=== PATIENT | female | born 1945 | race Caucasian/White ===

== ENCOUNTER → 2016-11-22 | Outpatient (CLI) | payer MEDICARE, OTHER ==
[~2016-11-22] MED LIST: LEVOTHYROXINE0.05 MG PO; LISINOPRIL10 MG PO; OMEPRAZOLE40 MG PO; SIMVASTATIN40 M1 PO
== END ==
LOC: MAMMO 11:02
DX: Z12.31 Encounter for screening mammogram for malignant neoplasm of breast (principal); Z00.00 Encounter for general adult medical examination without abnormal findings
CPT/HCPCS: G0202

== ENCOUNTER → 2016-12-19 | Day surgery (SDC) | payer MEDICARE, OTHER | LOC: MSO 07:26 | DX: Z12.11 Encounter for screening for malignant neoplasm of colon (principal); Z86.010 Personal history of colon polyps; Z80.0 Family history of malignant neoplasm of digestive organs; I10 Essential (primary) hypertension; K21.9 Gastro-esophageal reflux disease without esophagitis | CPT/HCPCS: 00810; J7120 ==

== ENCOUNTER → 2017-01-21 | Outpatient (CLI) | payer MEDICARE, OTHER | LOC: RAD 14:34 | DX: M25.572 Pain in left ankle and joints of left foot (principal); M25.571 Pain in right ankle and joints of right foot; M77.32 Calcaneal spur, left foot; W10.8XXA Fall (on) (from) other stairs and steps, initial encounter ==

== ENCOUNTER 2017-01-22 18:38 | Emergency (ER) | payer MEDICARE, OTHER ==
[~2017-01-22] VITALS: Ht 162.6 cm; Wt 80.8 kg
[2017-01-22] MEDS ORDERED: LISINOPRIL10 MG PO (18:48)
[2017-01-22] MEDS ORDERED: LEVOTHYROXINE0.05 MG PO (18:48)
[2017-01-22] MEDS ORDERED: OMEPRAZOLE40 MG PO (18:48)
[2017-01-22] MEDS ORDERED: SIMVASTATIN40 M1 PO (18:48)
[2017-01-22 20:43] VITALS: BP 143/81
== END 2017-01-22 20:43 | disposition home or self-care (01) ==
LOC: ED 18:38
DX: S93.402A Sprain of unspecified ligament of left ankle, initial encounter (principal); S93.401A Sprain of unspecified ligament of right ankle, initial encounter; W10.9XXA Fall (on) (from) unspecified stairs and steps, initial encounter; Y92.89 Other specified places as the place of occurrence of the external cause; I10 Essential (primary) hypertension

== ENCOUNTER → 2017-02-07 | Outpatient (CLI) | payer MEDICARE, OTHER ==
[2017-01-22 20:43] VITALS: BP 143/81
== END ==
LOC: RAD 13:15
DX: M25.572 Pain in left ankle and joints of left foot (principal); M25.571 Pain in right ankle and joints of right foot; M77.31 Calcaneal spur, right foot

== ENCOUNTER → 2017-04-05 | Outpatient (CLI) | payer MEDICARE, OTHER | LOC: RAD 09:10 | DX: M17.12 Unilateral primary osteoarthritis, left knee (principal) ==

== ENCOUNTER → 2017-05-02 | Outpatient (CLI) | payer MEDICARE, OTHER | LOC: LAB 10:32 | DX: Z00.00 Encounter for general adult medical examination without abnormal findings (principal); I10 Essential (primary) hypertension; E78.2 Mixed hyperlipidemia; E03.4 Atrophy of thyroid (acquired) ==

== ENCOUNTER → 2017-12-13 | Outpatient (CLI) | payer MEDICARE, OTHER | LOC: RAD 10:28 → MAMMO 11:30 | DX: Z13.820 Encounter for screening for osteoporosis (principal); M85.88 Other specified disorders of bone density and structure, other site ==

== ENCOUNTER 2018-02-24 20:52 | Emergency (ER) | payer MEDICARE, OTHER ==
[~2018-02-24] VITALS: Ht 162.6 cm; Wt 81.8 kg
[2018-02-24] MEDS ORDERED: ASPIR LOW81 MG PO (21:14)
[2018-02-24 21:54] LABS: ALBUMIN 3.7 g/dL (3.5-5.0); BUN/CREATININE RATIO 20.7 (6.0-26.0); CALCIUM 8.9 mg/dL (8.4-10.2); POTASSIUM 4.4 mmol/L (3.6-5.0); TOTAL BILIRUBIN 0.3 mg/dL (0.2-1.3); TOTAL PROTEIN 6.8 g/dL (6.3-8.2)
[2018-02-24 22:23] LABS: EOS # 0.1 (0.04-0.40); EOS % 1.4 % (1.0-5.0); HEMATOCRIT 38.3 % (37.0-47.0); HEMOGLOBIN 12.3 g/dL (12.5-16.0); LYMPH# 1.7 (1.50-4.00); MEAN CELL VOLUME 95 fl (78-100); MEAN CORPUSCULAR HEMOGLOBIN 31 pg (27-31); MEAN CORPUSCULAR HGB CONC 32 g/dL (33-37); MEAN PLATELET VOLUME 9.6 fl (7.4-10.4); MONO # 0.6 (0.20-0.80); NEU # 5.4 (1.40-6.50); PLATELET COUNT 205 K/mm3 (130-400); RED BLOOD COUNT 4.02 M/mm3 (4.10-5.30); RED CELL DISTRIBUTION WIDTH 12.8 % (11.5-14.5); WHITE BLOOD COUNT 7.8 K/mm3 (4.8-10.8)
[2018-02-24 23:17] VITALS: BP 159/68
== END 2018-02-24 23:17 | disposition home or self-care (01) ==
LOC: ED 20:52
PROVIDERS: Family Medicine
DX: R07.9 Chest pain, unspecified (principal); I10 Essential (primary) hypertension; E78.5 Hyperlipidemia, unspecified; K21.9 Gastro-esophageal reflux disease without esophagitis; Z79.82 Long term (current) use of aspirin

== ENCOUNTER → 2018-02-27 | Outpatient (CLI) | payer MEDICARE, OTHER ==
[2018-02-24 23:17] VITALS: BP 159/68
[~2018-02-27] MED LIST changes: +ASPIR LOW81 MG PO
== END ==
LOC: RAD 07:09
DX: R10.11 Right upper quadrant pain (principal)

== ENCOUNTER → 2018-04-02 | Day surgery (SDC) | payer MEDICARE, OTHER | LOC: MSO 04-01 16:02 | DX: R10.13 Epigastric pain (principal); R11.0 Nausea; I10 Essential (primary) hypertension; Z79.899 Other long term (current) drug therapy | CPT/HCPCS: 00731; J2704; J7120 ==

== ENCOUNTER → 2018-04-09 | Outpatient (CLI) | payer MEDICARE, OTHER ==
[2018-04-09 11:05] LABS: EOS # 0.3 (0.04-0.40); EOS % 5.2 % (1.0-5.0); HEMATOCRIT 39.3 % (37.0-47.0); HEMOGLOBIN 12.6 g/dL (12.5-16.0); LYMPH# 1.5 (1.50-4.00); MEAN CELL VOLUME 96 fl (78-100); MEAN CORPUSCULAR HEMOGLOBIN 31 pg (27-31); MEAN CORPUSCULAR HGB CONC 32 g/dL (33-37); MEAN PLATELET VOLUME 9.5 fl (7.4-10.4); MONO # 0.6 (0.20-0.80); NEU # 3.8 (1.40-6.50); PLATELET COUNT 236 K/mm3 (130-400); RED BLOOD COUNT 4.09 M/mm3 (4.10-5.30); WHITE BLOOD COUNT 6.3 K/mm3 (4.8-10.8)
[2018-04-09 11:20] LABS: CALCIUM 9.6 mg/dL (8.4-10.2); POTASSIUM 4.7 mmol/L (3.6-5.0); TOTAL BILIRUBIN 0.4 mg/dL (0.2-1.3); TOTAL PROTEIN 7.2 g/dL (6.3-8.2)
== END ==
LOC: LAB 10:48
PROVIDERS: Family Medicine
DX: Z00.00 Encounter for general adult medical examination without abnormal findings (principal); E78.5 Hyperlipidemia, unspecified; E55.9 Vitamin D deficiency, unspecified; E03.9 Hypothyroidism, unspecified

== ENCOUNTER → 2018-05-30 | Outpatient (CLI) | payer MEDICARE, OTHER ==
[~2018-05-30] VITALS: Ht 162.6 cm; Wt 81.8 kg
[2018-05-30 08:32] LABS: EOS # 0.3 (0.04-0.40); EOS % 4.6 % (1.0-5.0); HEMATOCRIT 38.6 % (37.0-47.0); HEMOGLOBIN 12.7 g/dL (12.5-16.0); LYMPH# 1.7 (1.50-4.00); MEAN CELL VOLUME 96 fl (78-100); MEAN CORPUSCULAR HEMOGLOBIN 32 pg (27-31); MEAN CORPUSCULAR HGB CONC 33 g/dL (33-37); MEAN PLATELET VOLUME 9.7 fl (7.4-10.4); MONO # 0.5 (0.20-0.80); NEU # 4.1 (1.40-6.50); PLATELET COUNT 218 K/mm3 (130-400); RED BLOOD COUNT 4.02 M/mm3 (4.10-5.30); RED CELL DISTRIBUTION WIDTH 12.9 % (11.5-14.5); WHITE BLOOD COUNT 6.5 K/mm3 (4.8-10.8)
[2018-05-30 08:48] VITALS: BP 189/87
[2018-05-30 08:50] VITALS: BP 189/87
[2018-05-30 08:54] LABS: ALBUMIN 4.1 g/dL (3.5-5.0); CALCIUM 9.9 mg/dL (8.4-10.2); POTASSIUM 4.3 mmol/L (3.6-5.0); TOTAL BILIRUBIN 0.5 mg/dL (0.2-1.3); TOTAL PROTEIN 6.8 g/dL (6.3-8.2)
[2018-05-30 09:01] LABS: URINE APPEARANCE CLEAR; URINE BILIRUBIN NEGATIVE (NEGATIVE); URINE COLOR YELLOW; URINE GLUCOSE NEGATIVE (NEGATIVE); URINE KETONE NEGATIVE (NEGATIVE); URINE NITRATE NEGATIVE (NEGATIVE); URINE PROTEIN(semi-quant) NEGATIVE (NEGATIVE); URINE UROBILINOGEN NORMAL (NORMAL)
[2018-05-30 09:02] LABS: URINE BLOOD TRACE (NEGATIVE); URINE LEUKOCYTE ESTERASE TRACE (NEGATIVE); URINE MUCUS PRESENT (NOT PRESENT)
[2018-05-30 09:40] VITALS: BP 96/56
[2018-05-30 12:14] LABS: PROTHROMBIN TIME 9.9 SECONDS (9.0-12.0)
== END ==
LOC: AMSURD 08:09
PROVIDERS: Family Medicine
DX: Z01.818 Encounter for other preprocedural examination (principal)

== ENCOUNTER → 2018-06-12 | Outpatient (CLI) | payer MEDICARE, OTHER ==
[2018-05-30 08:50] VITALS: BP 189/87
== END ==
LOC: PT 12:54
DX: Z01.818 Encounter for other preprocedural examination (principal)

== ENCOUNTER → 2018-06-14 | Outpatient (CLI) | payer MEDICARE, OTHER ==
[2018-05-30 08:50] VITALS: BP 189/87
[2018-06-14 09:50] LABS: URINE APPEARANCE CLEAR; URINE BILIRUBIN NEGATIVE (NEGATIVE); URINE BLOOD NEGATIVE (NEGATIVE); URINE COLOR YELLOW; URINE GLUCOSE NEGATIVE (NEGATIVE); URINE KETONE NEGATIVE (NEGATIVE); URINE LEUKOCYTE ESTERASE NEGATIVE (NEGATIVE); URINE NITRATE NEGATIVE (NEGATIVE); URINE PROTEIN(semi-quant) TRACE mg/dL (NEGATIVE); URINE UROBILINOGEN NORMAL (NORMAL); URINE WBC 0-1 /hpf (0-3)
== END ==
LOC: LAB 08:50
PROVIDERS: Family Medicine
DX: Z01.812 Encounter for preprocedural laboratory examination (principal)

== ENCOUNTER → 2018-07-20 | Outpatient (CLI) | payer MEDICARE, OTHER ==
[2018-05-30 08:50] VITALS: BP 189/87
[2018-07-20 08:30] LABS: URINE APPEARANCE CLEAR; URINE BILIRUBIN NEGATIVE (NEGATIVE); URINE BLOOD NEGATIVE (NEGATIVE); URINE COLOR YELLOW; URINE GLUCOSE NEGATIVE (NEGATIVE); URINE KETONE NEGATIVE (NEGATIVE); URINE LEUKOCYTE ESTERASE NEGATIVE (NEGATIVE); URINE MUCUS PRESENT (NOT PRESENT); URINE NITRATE NEGATIVE (NEGATIVE); URINE PROTEIN(semi-quant) TRACE mg/dL (NEGATIVE); URINE UROBILINOGEN NORMAL (NORMAL); URINE WBC 0-1 /hpf (0-3)
== END ==
LOC: LAB 07:35
PROVIDERS: Family Medicine
DX: Z01.812 Encounter for preprocedural laboratory examination (principal); M25.562 Pain in left knee; N30.01 Acute cystitis with hematuria

== ENCOUNTER → 2018-09-24 | Outpatient (CLI) | payer MEDICARE, OTHER ==
[2018-05-30 08:50] VITALS: BP 189/87
== END ==
LOC: LAB 10:46
DX: E03.9 Hypothyroidism, unspecified (principal)

== ENCOUNTER 2018-11-02 09:00 | Outpatient (RCR) | payer MEDICARE, OTHER ==
[2018-05-30 08:50] VITALS: BP 189/87
== END 2018-11-04 | disposition home or self-care (01) ==
LOC: PT
DX: Z47.1 Aftercare following joint replacement surgery (principal); Z96.652 Presence of left artificial knee joint
CPT/HCPCS: G8978-GP; G8979-GP

== ENCOUNTER 2018-11-12 09:00 | Outpatient (RCR) | payer MEDICARE, OTHER ==
[2018-05-30 08:50] VITALS: BP 189/87
[2018-11-22] MEDS ORDERED: OSCAL 500 TAB500 MG CHEW (18:57)
[2018-11-22] MEDS ORDERED: VANCOMYCIN1.5 GM/251 IV (18:58)
[2018-11-22] MEDS ORDERED: ULTRAM50 M1 PO (19:00)
[2018-11-22] MEDS ORDERED: RIFAMPIN300 M1 PO (19:03)
[2018-11-22] MEDS ORDERED: CELEBREX 200MG200 MG PO (19:04)
[2018-11-22] MEDS ORDERED: CETIRIZINE HYDRO5 MG PO (19:05)
== END 2018-11-12 09:30 ==
LOC: PT 09:00
DX: Z96.652 Presence of left artificial knee joint (principal)

== ENCOUNTER → 2018-11-26 | Outpatient (CLI) | payer MEDICARE, OTHER ==
[2018-11-25 17:06] VITALS: BP 147/72
[~2018-11-26] MED LIST changes: +CELEBREX 200MG200 MG PO; +CETIRIZINE HYDRO5 MG PO; +OSCAL 500 TAB500 MG CHEW; +RIFAMPIN300 M1 PO; +ULTRAM50 M1 PO; +VANCOMYCIN1.5 GM/251 IV
[2018-11-26 09:12] LABS: BASO # 0.1 (0.02-0.10); EOS # 0.4 (0.04-0.40); EOS % 5.2 % (1.0-5.0); HEMATOCRIT 34.6 % (37.0-47.0); LYMPH# 1.3 (1.50-4.00); MEAN CELL VOLUME 94 fl (78-100); MEAN CORPUSCULAR HEMOGLOBIN 30 pg (27-31); MEAN CORPUSCULAR HGB CONC 32 g/dL (33-37); MEAN PLATELET VOLUME 9.1 fl (7.4-10.4); MONO # 0.6 (0.20-0.80); NEU # 4.5 (1.40-6.50); PLATELET COUNT 410 K/mm3 (130-400); RED BLOOD COUNT 3.68 M/mm3 (4.10-5.30); RED CELL DISTRIBUTION WIDTH 12.4 % (11.5-14.5); WHITE BLOOD COUNT 6.8 K/mm3 (4.8-10.8)
[2018-11-26 10:35] LABS: ERYTHROCYTE SEDIMENTATION RATE 93 mm/hr (0-30)
== END ==
LOC: LAB 08:42
PROVIDERS: Orthopaedic Surgery Sports Medicine
DX: M00.869 Arthritis due to other bacteria, unspecified knee (principal); Z96.651 Presence of right artificial knee joint

== ENCOUNTER → 2018-12-02 | Outpatient (CLI) | payer MEDICARE, OTHER ==
[2018-11-30 19:20] VITALS: BP 194/85
== END ==
LOC: LAB 09:00
DX: Z45.2 Encounter for adjustment and management of vascular access device (principal); Z22.322 Carrier or suspected carrier of Methicillin resistant Staphylococcus aureus

== ENCOUNTER → 2018-12-03 | Outpatient (CLI) | payer MEDICARE, OTHER ==
[2018-11-30 19:20] VITALS: BP 194/85
[2018-12-03 11:50] LABS: HEMATOCRIT 30.6 % (37.0-47.0); HEMOGLOBIN 9.6 g/dL (12.5-16.0); MEAN CELL VOLUME 94 fl (78-100); MEAN CORPUSCULAR HEMOGLOBIN 30 pg (27-31); MEAN CORPUSCULAR HGB CONC 31 g/dL (33-37); MEAN PLATELET VOLUME 9.9 fl (7.4-10.4); PLATELET COUNT 237 K/mm3 (130-400); RED BLOOD COUNT 3.24 M/mm3 (4.10-5.30); RED CELL DISTRIBUTION WIDTH 12.4 % (11.5-14.5)
[2018-12-03 11:51] LABS: D-DIMER 3.6 mg/L FEU (0.15-0.50)
[2018-12-03 11:52] LABS: ALBUMIN 3.6 g/dL (3.5-5.0); CALCIUM 11.2 mg/dL (8.4-10.2); POTASSIUM 4.1 mmol/L (3.6-5.0); TOTAL BILIRUBIN 0.3 mg/dL (0.2-1.3)
[2018-12-03 13:04] LABS: LYMPHOCYTE 20 % (20-51); MONOCYTE 14 % (3-10); NEUTROPHILS 59 % (42-75)
[2018-12-03 13:05] LABS: ERYTHROCYTE SEDIMENTATION RATE 80 mm/hr (0-30)
== END ==
LOC: RAD 10:20 → LAB 10:20
PROVIDERS: Family Medicine; Internal Medicine Infectious Disease
DX: Z13.89 Encounter for screening for other disorder (principal); R79.1 Abnormal coagulation profile; R06.02 Shortness of breath; Z22.322 Carrier or suspected carrier of Methicillin resistant Staphylococcus aureus

== ENCOUNTER → 2018-12-04 | Outpatient (CLI) | payer MEDICARE, OTHER ==
[2018-12-03 10:55] VITALS: BP 185/82
== END ==
LOC: LAB 10:40
PROVIDERS: Family Medicine
DX: Z45.2 Encounter for adjustment and management of vascular access device (principal)

== ENCOUNTER → 2018-12-06 | Outpatient (CLI) | payer MEDICARE, OTHER ==
[2018-12-05 11:29] VITALS: BP 168/79
== END ==
LOC: LAB 10:06
PROVIDERS: Family Medicine
DX: Z45.2 Encounter for adjustment and management of vascular access device (principal)

== ENCOUNTER → 2018-12-10 | Outpatient (CLI) | payer MEDICARE, OTHER ==
[2018-12-09 17:05] VITALS: BP 156/64
[2018-12-10 18:00] LABS: HEMATOCRIT 27.2 % (37.0-47.0); HEMOGLOBIN 8.6 g/dL (12.5-16.0); MEAN CELL VOLUME 93 fl (78-100); MEAN CORPUSCULAR HEMOGLOBIN 30 pg (27-31); MEAN CORPUSCULAR HGB CONC 32 g/dL (33-37); PLATELET COUNT 246 K/mm3 (130-400); RED BLOOD COUNT 2.92 M/mm3 (4.10-5.30); RED CELL DISTRIBUTION WIDTH 12.4 % (11.5-14.5); WHITE BLOOD COUNT 7.4 K/mm3 (4.8-10.8)
[2018-12-10 18:10] LABS: ALBUMIN 3.9 g/dL (3.5-5.0); POTASSIUM 4.4 mmol/L (3.6-5.0); TOTAL BILIRUBIN 0.3 mg/dL (0.2-1.3); TOTAL PROTEIN 7.2 g/dL (6.3-8.2)
[2018-12-10 20:35] LABS: LYMPHOCYTE 21 % (20-51); MONOCYTE 11 % (3-10); NEUTROPHILS 63 % (42-75)
[2018-12-10 20:36] LABS: ERYTHROCYTE SEDIMENTATION RATE 92 mm/hr (0-30)
== END ==
LOC: LAB 17:14
PROVIDERS: Family Medicine
DX: A49.02 Methicillin resistant Staphylococcus aureus infection, unspecified site (principal)

== ENCOUNTER → 2018-12-17 | Outpatient (CLI) | payer MEDICARE, OTHER ==
[2018-12-16 17:11] VITALS: BP 156/76
[2018-12-17 18:00] LABS: BASO # 0.1 (0.02-0.10); EOS # 0.3 (0.04-0.40); EOS % 4.7 % (1.0-5.0); HEMATOCRIT 30.2 % (37.0-47.0); HEMOGLOBIN 9.5 g/dL (12.5-16.0); LYMPH# 2.2 (1.50-4.00); MEAN CELL VOLUME 94 fl (78-100); MEAN CORPUSCULAR HEMOGLOBIN 30 pg (27-31); MEAN CORPUSCULAR HGB CONC 32 g/dL (33-37); MEAN PLATELET VOLUME 10.9 fl (7.4-10.4); MONO # 0.8 (0.20-0.80); PLATELET COUNT 213 K/mm3 (130-400); RED BLOOD COUNT 3.22 M/mm3 (4.10-5.30); RED CELL DISTRIBUTION WIDTH 12.5 % (11.5-14.5); WHITE BLOOD COUNT 7.3 K/mm3 (4.8-10.8)
[2018-12-17 18:10] LABS: ALBUMIN 4.4 g/dL (3.5-5.0); CALCIUM 10.3 mg/dL (8.4-10.2); POTASSIUM 4.8 mmol/L (3.6-5.0); TOTAL BILIRUBIN 0.4 mg/dL (0.2-1.3); TOTAL PROTEIN 7.5 g/dL (6.3-8.2)
[2018-12-17 19:28] LABS: ERYTHROCYTE SEDIMENTATION RATE 70 mm/hr (0-30)
== END ==
LOC: LAB 14:43
PROVIDERS: Family Medicine
DX: A49.02 Methicillin resistant Staphylococcus aureus infection, unspecified site (principal)

== ENCOUNTER 2018-12-25 16:46 | Outpatient (RCR) | payer MEDICARE, OTHER ==
[2018-11-22 19:35] VITALS: BP 158/73
[2018-11-22 20:25] VITALS: BP 190/76
[2018-11-23 17:30] VITALS: BP 158/67
[2018-11-23 19:23] VITALS: BP 171/85
[2018-11-24 17:15] VITALS: BP 151/73
[2018-11-25 17:06] VITALS: BP 147/72
[2018-11-26 18:24] VITALS: BP 144/65
[2018-11-26 19:55] VITALS: BP 192/91
[2018-11-27 17:15] VITALS: BP 175/76
[2018-11-27 19:05] VITALS: BP 177/65
[2018-11-28 17:40] VITALS: BP 151/53
[2018-11-28 19:32] VITALS: BP 163/60
[2018-11-29 17:21] VITALS: BP 188/72
[2018-11-29 18:31] VITALS: BP 191/69
[2018-11-30 17:32] VITALS: BP 146/68
[2018-11-30 19:20] VITALS: BP 194/85
[2018-11-30 20:18] LABS: HEMATOCRIT 33.3 % (37.0-47.0); HEMOGLOBIN 10.4 g/dL (12.5-16.0); MEAN CELL VOLUME 95 fl (78-100); MEAN CORPUSCULAR HEMOGLOBIN 30 pg (27-31); MEAN CORPUSCULAR HGB CONC 31 g/dL (33-37); MEAN PLATELET VOLUME 10.4 fl (7.4-10.4); PLATELET COUNT 312 K/mm3 (130-400); RED BLOOD COUNT 3.49 M/mm3 (4.10-5.30); RED CELL DISTRIBUTION WIDTH 12.6 % (11.5-14.5); WHITE BLOOD COUNT 5.2 K/mm3 (4.8-10.8)
[2018-11-30 21:10] LABS: ALBUMIN 3.7 g/dL (3.5-5.0); CALCIUM 12.2 mg/dL (8.4-10.2); POTASSIUM 4.5 mmol/L (3.6-5.0); TOTAL BILIRUBIN 0.4 mg/dL (0.2-1.3); TOTAL PROTEIN 6.6 g/dL (6.3-8.2)
[2018-11-30 22:02] LABS: LYMPHOCYTE 25 % (20-51); MONOCYTE 17 % (3-10); NEUTROPHILS 49 % (42-75)
[2018-11-30 22:03] LABS: ERYTHROCYTE SEDIMENTATION RATE 68 mm/hr (0-30)
[2018-12-01 13:39] LABS: C-REACTIVE PROTEIN XXX
[2018-12-03 10:55] VITALS: BP 185/82
[2018-12-04 11:18] VITALS: BP 128/53
[2018-12-05 10:19] VITALS: BP 151/65
[2018-12-05 11:29] VITALS: BP 168/79
[2018-12-06 10:20] VITALS: BP 147/62
[2018-12-06 11:55] VITALS: BP 186/84
[2018-12-07 10:30] VITALS: BP 197/76
[2018-12-07 11:30] VITALS: BP 174/76
[2018-12-08 17:05] VITALS: BP 162/68
[2018-12-09 17:05] VITALS: BP 156/64
[2018-12-10 17:18] VITALS: BP 176/70
[2018-12-11 17:06] VITALS: BP 172/76
[2018-12-12 16:55] VITALS: BP 130/75
[2018-12-13 16:56] VITALS: BP 147/71
[2018-12-14 17:10] VITALS: BP 161/70
[2018-12-15 16:53] VITALS: BP 154/57
[2018-12-16 17:11] VITALS: BP 156/76
[2018-12-17 17:07] VITALS: BP 150/61
[2018-12-18 17:12] VITALS: BP 156/61
[2018-12-19 16:56] VITALS: BP 178/81
[2018-12-20 16:56] VITALS: BP 193/88
[2018-12-21 17:08] VITALS: BP 163/95
[2018-12-22 16:51] VITALS: BP 197/80
[2018-12-23 16:54] VITALS: BP 166/69
[2018-12-24 17:09] VITALS: BP 155/64
[~2018-12-25] VITALS: Ht 180.3 cm; Wt 81.8 kg
[2018-12-25 16:55] VITALS: BP 184/83
== END 2018-12-25 19:00 | disposition home or self-care (01) ==
LOC: AMSURD 16:46
PROVIDERS: Family Medicine
DX: Z45.2 Encounter for adjustment and management of vascular access device (principal); A49.02 Methicillin resistant Staphylococcus aureus infection, unspecified site; Z22.322 Carrier or suspected carrier of Methicillin resistant Staphylococcus aureus
CPT/HCPCS: J0878; J1644; J3370; J7050

== ENCOUNTER → 2018-12-25 | Outpatient (CLI) | payer MEDICARE, OTHER ==
[2018-12-24 17:09] VITALS: BP 155/64
[2018-12-25 18:10] LABS: BASO # 0.1 (0.02-0.10); EOS # 0.5 (0.04-0.40); EOS % 7.7 % (1.0-5.0); HEMATOCRIT 28.8 % (37.0-47.0); HEMOGLOBIN 9.1 g/dL (12.5-16.0); LYMPH# 2.1 (1.50-4.00); MEAN CELL VOLUME 95 fl (78-100); MEAN CORPUSCULAR HEMOGLOBIN 30 pg (27-31); MEAN CORPUSCULAR HGB CONC 32 g/dL (33-37); MEAN PLATELET VOLUME 10.6 fl (7.4-10.4); MONO # 0.6 (0.20-0.80); NEU # 2.9 (1.40-6.50); PLATELET COUNT 210 K/mm3 (130-400); RED BLOOD COUNT 3.03 M/mm3 (4.10-5.30); RED CELL DISTRIBUTION WIDTH 12.7 % (11.5-14.5); WHITE BLOOD COUNT 6.1 K/mm3 (4.8-10.8)
[2018-12-25 18:22] LABS: ALBUMIN 3.7 g/dL (3.4-4.8); CALCIUM 9.8 mg/dL (8.4-10.2); POTASSIUM 5.4 mmol/L (3.5-5.1); TOTAL BILIRUBIN 0.2 mg/dL (0.2-1.2); TOTAL PROTEIN 6.8 g/dL (6.2-8.1)
[2018-12-25 19:51] LABS: ERYTHROCYTE SEDIMENTATION RATE 50 mm/hr (0-30)
== END ==
LOC: LAB 17:16
PROVIDERS: Family Medicine
DX: M00.9 Pyogenic arthritis, unspecified (principal); Z22.322 Carrier or suspected carrier of Methicillin resistant Staphylococcus aureus

== ENCOUNTER → 2019-01-07 | Outpatient (CLI) | payer MEDICARE, OTHER ==
[2018-12-25 16:55] VITALS: BP 184/83
== END ==
LOC: RAD 11:24
DX: R47.01 Aphasia (principal)

== ENCOUNTER → 2019-01-09 | Outpatient (CLI) | payer MEDICARE, OTHER ==
[2018-12-25 16:55] VITALS: BP 184/83
[2019-01-09 09:30] LABS: EOS # 0.2 (0.04-0.40); EOS % 1.6 % (1.0-5.0); HEMATOCRIT 35.5 % (37.0-47.0); HEMOGLOBIN 11.3 g/dL (12.5-16.0); LYMPH# 2.9 (1.50-4.00); MEAN CELL VOLUME 94 fl (78-100); MEAN CORPUSCULAR HEMOGLOBIN 30 pg (27-31); MEAN CORPUSCULAR HGB CONC 32 g/dL (33-37); MEAN PLATELET VOLUME 10.2 fl (7.4-10.4); MONO # 0.7 (0.20-0.80); NEU # 5.8 (1.40-6.50); PLATELET COUNT 271 K/mm3 (130-400); RED BLOOD COUNT 3.78 M/mm3 (4.10-5.30); RED CELL DISTRIBUTION WIDTH 13.4 % (11.5-14.5); WHITE BLOOD COUNT 9.6 K/mm3 (4.8-10.8)
[2019-01-09 09:47] LABS: ALBUMIN 3.9 g/dL (3.4-4.8); ALT/SGPT 30 U/L (0-55); AST-SGOT 19 U/L (5-34); CARBON DIOXIDE 23 mmol/L (23-31); GLUCOSE 102 mg/dL (65-105); SODIUM 137 mmol/L (136-145); TOTAL BILIRUBIN 0.3 mg/dL (0.2-1.2); TOTAL PROTEIN 6.9 g/dL (6.2-8.1)
[2019-01-09 10:40] LABS: ERYTHROCYTE SEDIMENTATION RATE 35 mm/hr (0-30)
== END ==
LOC: LAB 08:55
PROVIDERS: Internal Medicine Infectious Disease
DX: M00.9 Pyogenic arthritis, unspecified (principal)

== ENCOUNTER → 2019-01-23 | Outpatient (CLI) | payer MEDICARE, OTHER ==
[2018-12-25 16:55] VITALS: BP 184/83
[2019-01-23 09:45] LABS: CALCIUM 9.4 mg/dL (8.3-10.5); POTASSIUM 4.3 mmol/L (3.5-5.1); TOTAL BILIRUBIN 0.3 mg/dL (0.2-1.2); TOTAL PROTEIN 7.2 g/dL (6.2-8.1)
[2019-01-23 09:55] LABS: EOS # 0.2 (0.04-0.40); EOS % 3.6 % (1.0-5.0); HEMOGLOBIN 11.3 g/dL (12.5-16.0); LYMPH# 1.3 (1.50-4.00); MEAN CELL VOLUME 95 fl (78-100); MEAN CORPUSCULAR HEMOGLOBIN 30 pg (27-31); MEAN CORPUSCULAR HGB CONC 31 g/dL (33-37); MEAN PLATELET VOLUME 9.7 fl (7.4-10.4); MONO # 0.5 (0.20-0.80); NEU # 4.4 (1.40-6.50); PLATELET COUNT 236 K/mm3 (130-400); RED BLOOD COUNT 3.78 M/mm3 (4.10-5.30); RED CELL DISTRIBUTION WIDTH 14.3 % (11.5-14.5); WHITE BLOOD COUNT 6.5 K/mm3 (4.8-10.8)
[2019-01-23 11:05] LABS: ERYTHROCYTE SEDIMENTATION RATE 69 mm/hr (0-30)
== END ==
LOC: LAB 09:07
PROVIDERS: Internal Medicine Infectious Disease
DX: M00.9 Pyogenic arthritis, unspecified (principal)

== ENCOUNTER 2019-02-14 09:30 | Outpatient (RCR) | payer MEDICARE, OTHER ==
[2018-11-22 20:25] VITALS: BP 190/76
== END 2019-02-14 10:00 ==
LOC: PT 09:30
DX: Z47.1 Aftercare following joint replacement surgery (principal); Z96.652 Presence of left artificial knee joint

== ENCOUNTER → 2019-02-27 | Outpatient (CLI) | payer MEDICARE, OTHER ==
[2019-02-27 08:27] LABS: EOS # 0.1 (0.04-0.40); HEMOGLOBIN 10.5 g/dL (12.5-16.0); LYMPH# 1.5 (1.50-4.00); MEAN CELL VOLUME 95 fl (78-100); MEAN CORPUSCULAR HEMOGLOBIN 30 pg (27-31); MEAN CORPUSCULAR HGB CONC 32 g/dL (33-37); MONO # 0.4 (0.20-0.80); NEU # 2.6 (1.40-6.50); PLATELET COUNT 237 K/mm3 (130-400); RED BLOOD COUNT 3.46 M/mm3 (4.10-5.30); RED CELL DISTRIBUTION WIDTH 13.2 % (11.5-14.5); WHITE BLOOD COUNT 4.7 K/mm3 (4.8-10.8)
[2019-02-27 08:32] LABS: POTASSIUM 5.2 mmol/L (3.5-5.1)
[2019-02-27 08:34] LABS: CALCIUM 9.9 mg/dL (8.3-10.5)
[2019-02-27 08:35] LABS: TOTAL PROTEIN 6.9 g/dL (6.2-8.1)
[2019-02-27 08:37] LABS: TOTAL BILIRUBIN 0.4 mg/dL (0.2-1.2)
[2019-02-27 10:03] LABS: ERYTHROCYTE SEDIMENTATION RATE 53 mm/hr (0-30)
== END ==
LOC: LAB 08:11
DX: M00.9 Pyogenic arthritis, unspecified (principal)

== ENCOUNTER 2019-04-14 09:44 | Observation (INO) | payer MEDICARE, OTHER ==
[~2019-04-14] VITALS: Ht 154.9 cm; Wt 83.5 kg
[2019-04-14] MEDS ORDERED: BACTRIM DS 8001 TAB PO (09:59)
[2019-04-14] MEDS ORDERED: MELOXICAM15 MG PO (10:00)
[2019-04-14] MEDS ORDERED: ZOFRAN ODT4 MG PO (10:00)
[2019-04-14] MEDS ORDERED: SERTRALINE50 MG PO (10:00)
[2019-04-14 11:15] LABS: POTASSIUM 5.1 mmol/L (3.5-5.1)
[2019-04-14 11:16] LABS: CALCIUM 9.4 mg/dL (8.3-10.5); HEMATOCRIT 27.6 % (37.0-47.0); HEMOGLOBIN 9.1 g/dL (12.5-16.0); MEAN CELL VOLUME 91 fl (78-100); MEAN CORPUSCULAR HEMOGLOBIN 30 pg (27-31); MEAN CORPUSCULAR HGB CONC 33 g/dL (33-37); MEAN PLATELET VOLUME 10.8 fl (7.4-10.4); PLATELET COUNT 209 K/mm3 (130-400); RED BLOOD COUNT 3.04 M/mm3 (4.10-5.30); RED CELL DISTRIBUTION WIDTH 12.2 % (11.5-14.5); WHITE BLOOD COUNT 6.5 K/mm3 (4.8-10.8)
[2019-04-14 11:17] LABS: TOTAL PROTEIN 7.3 g/dL (6.2-8.1)
[2019-04-14 11:19] LABS: TOTAL BILIRUBIN 0.4 mg/dL (0.2-1.2)
[2019-04-14 11:54] LABS: LYMPHOCYTE 14 % (20-51); NEUTROPHILS 75 % (42-75)
[2019-04-14 11:55] LABS: URINE APPEARANCE HAZY; URINE COLOR DK YELLOW; URINE GLUCOSE NEGATIVE (NEGATIVE); URINE KETONE NEGATIVE (NEGATIVE); URINE PROTEIN(semi-quant) TRACE mg/dL (NEGATIVE)
[2019-04-14 11:55] LABS: MONOCYTE 9 % (3-10)
[2019-04-14 11:56] LABS: URINE BILIRUBIN 1+ (NEGATIVE); URINE BLOOD TRACE (NEGATIVE); URINE LEUKOCYTE ESTERASE 1+ (NEGATIVE); URINE MUCUS PRESENT (NOT PRESENT); URINE NITRATE NEGATIVE (NEGATIVE); URINE UROBILINOGEN NORMAL (NORMAL)
[2019-04-14 16:40] LABS: POTASSIUM 4.6 mmol/L (3.5-5.1)
[2019-04-14 16:41] LABS: CALCIUM 8.5 mg/dL (8.3-10.5)
[2019-04-14] MEDS ORDERED: ZOLOFT 50MG50 MG PO (18:15)
[2019-04-14] MEDS ORDERED: ZYRTEC ALLERGY10 MG PO (18:18)
[2019-04-14 18:46] VITALS: BP 122/74
[2019-04-14 18:49] VITALS: BP 122/74
[2019-04-14 23:30] VITALS: BP 146/67
[2019-04-15] VITALS (22 sets, daily range): BP systolic 98–178; BP diastolic 58–78
[2019-04-15 06:54] LABS: HEMATOCRIT 24.2 % (37.0-47.0); MEAN CELL VOLUME 93 fl (78-100); MEAN CORPUSCULAR HEMOGLOBIN 30 pg (27-31); MEAN CORPUSCULAR HGB CONC 32 g/dL (33-37); MEAN PLATELET VOLUME 9.9 fl (7.4-10.4); PLATELET COUNT 207 K/mm3 (130-400); RED CELL DISTRIBUTION WIDTH 12.2 % (11.5-14.5); WHITE BLOOD COUNT 5.6 K/mm3 (4.8-10.8)
[2019-04-15 07:12] LABS: HEMOGLOBIN 7.7 g/dL (12.5-16.0)
[2019-04-15 07:22] LABS: LYMPHOCYTE 11 % (20-51); MONOCYTE 8 % (3-10); NEUTROPHILS 80 % (42-75)
[2019-04-15 07:54] LABS: POTASSIUM 4.8 mmol/L (3.5-5.1)
[2019-04-15 07:56] LABS: CALCIUM 8.8 mg/dL (8.3-10.5)
[2019-04-15 07:59] LABS: ERYTHROCYTE SEDIMENTATION RATE 93 mm/hr (0-30)
[2019-04-15 21:35] LABS: HEMATOCRIT 29.7 % (37.0-47.0); HEMOGLOBIN 9.9 g/dL (12.5-16.0); MEAN CELL VOLUME 91 fl (78-100); MEAN CORPUSCULAR HEMOGLOBIN 31 pg (27-31); MEAN CORPUSCULAR HGB CONC 33 g/dL (33-37); MEAN PLATELET VOLUME 9.2 fl (7.4-10.4); PLATELET COUNT 181 K/mm3 (130-400); RED BLOOD COUNT 3.25 M/mm3 (4.10-5.30); RED CELL DISTRIBUTION WIDTH 13.1 % (11.5-14.5); WHITE BLOOD COUNT 4.5 K/mm3 (4.8-10.8)
[2019-04-15 21:46] LABS: POTASSIUM 4.5 mmol/L (3.5-5.1)
[2019-04-15 21:47] LABS: CALCIUM 8.6 mg/dL (8.3-10.5)
[2019-04-15 21:49] LABS: TOTAL PROTEIN 5.7 g/dL (6.2-8.1)
[2019-04-15 21:51] LABS: TOTAL BILIRUBIN 0.4 mg/dL (0.2-1.2)
[2019-04-15 22:01] LABS: LYMPHOCYTE 11 % (20-51); MONOCYTE 11 % (3-10); NEUTROPHILS 76 % (42-75)
[2019-04-16 03:11] VITALS: BP 174/78
[2019-04-16 05:57] LABS: HEMATOCRIT 32.5 % (37.0-47.0); MEAN CELL VOLUME 92 fl (78-100); MEAN CORPUSCULAR HEMOGLOBIN 31 pg (27-31); MEAN CORPUSCULAR HGB CONC 34 g/dL (33-37); MEAN PLATELET VOLUME 9.4 fl (7.4-10.4); PLATELET COUNT 192 K/mm3 (130-400); RED BLOOD COUNT 3.55 M/mm3 (4.10-5.30); RED CELL DISTRIBUTION WIDTH 13.3 % (11.5-14.5); WHITE BLOOD COUNT 5.6 K/mm3 (4.8-10.8)
[2019-04-16 06:13] VITALS: BP 159/81
[2019-04-16 06:33] LABS: ALBUMIN 3.2 g/dL (3.4-4.8); POTASSIUM 4.6 mmol/L (3.5-5.1)
[2019-04-16 06:34] LABS: CALCIUM 9.1 mg/dL (8.3-10.5)
[2019-04-16 06:35] LABS: TOTAL PROTEIN 6.1 g/dL (6.2-8.1)
[2019-04-16 06:36] LABS: BAND 1 % (0-10); LYMPHOCYTE 10 % (20-51); MONOCYTE 11 % (3-10); NEUTROPHILS 78 % (42-75)
[2019-04-16 06:37] LABS: TOTAL BILIRUBIN 0.4 mg/dL (0.2-1.2)
[2019-04-16] MEDS ORDERED: FERROUS SU325 MG/TAB PO (11:27)
[2019-04-16] MEDS ORDERED: BACTRIM DS TAB1 EACH PO (11:27)
[2019-04-16 11:41] VITALS: BP 200/94
[2019-04-16 12:41] VITALS: BP 186/81
== END 2019-04-16 13:52 | disposition short-term general hospital (02) ==
LOC: ED 09:44 → MED/SURG 18:09
PROVIDERS: ADMIT Family Medicine
DX: R40.4 Transient alteration of awareness (principal); M19.90 Unspecified osteoarthritis, unspecified site; N18.9 Chronic kidney disease, unspecified; I12.9 Hypertensive chronic kidney disease with stage 1 through stage 4 chronic kidney disease, or unspecified chronic kidney disease; N18.3 Chronic kidney disease, stage 3 (moderate); E03.9 Hypothyroidism, unspecified; F32.9 Major depressive disorder, single episode, unspecified; K21.9 Gastro-esophageal reflux disease without esophagitis; E78.5 Hyperlipidemia, unspecified; J30.89 Other allergic rhinitis; Z88.1 Allergy status to other antibiotic agents; N39.0 Urinary tract infection, site not specified; D63.1 Anemia in chronic kidney disease; Z96.652 Presence of left artificial knee joint
CPT/HCPCS: A4216; G0378; J0696; J7030; P9016

== ENCOUNTER → 2019-04-24 | Outpatient (CLI) | payer MEDICARE, OTHER ==
[2019-04-16 12:41] VITALS: BP 186/81
[~2019-04-24] MED LIST changes: +BACTRIM DS 8001 TAB PO; +BACTRIM DS TAB1 EACH PO; +FERROUS SU325 MG/TAB PO; +MELOXICAM15 MG PO; +SERTRALINE50 MG PO; +ZOFRAN ODT4 MG PO; +ZOLOFT 50MG50 MG PO; +ZYRTEC ALLERGY10 MG PO
[2019-04-24 11:07] LABS: HEMATOCRIT 35.8 % (37.0-47.0); HEMOGLOBIN 11.4 g/dL (12.5-16.0); MEAN CELL VOLUME 93 fl (78-100); MEAN CORPUSCULAR HEMOGLOBIN 30 pg (27-31); MEAN CORPUSCULAR HGB CONC 32 g/dL (33-37); MEAN PLATELET VOLUME 8.9 fl (7.4-10.4); PLATELET COUNT 275 K/mm3 (130-400); RED BLOOD COUNT 3.84 M/mm3 (4.10-5.30); RED CELL DISTRIBUTION WIDTH 13.3 % (11.5-14.5); WHITE BLOOD COUNT 6.2 K/mm3 (4.8-10.8)
[2019-04-24 11:20] LABS: ALBUMIN 3.3 g/dL (3.4-4.8)
[2019-04-24 11:21] LABS: CALCIUM 8.9 mg/dL (8.3-10.5)
[2019-04-24 11:22] LABS: TOTAL PROTEIN 6.5 g/dL (6.2-8.1)
[2019-04-24 11:24] LABS: TOTAL BILIRUBIN 0.2 mg/dL (0.2-1.2)
[2019-04-24 11:27] LABS: LYMPHOCYTE 21 % (20-51); MONOCYTE 12 % (3-10); NEUTROPHILS 65 % (42-75)
[2019-04-25 09:30] LABS: ERYTHROCYTE SEDIMENTATION RATE 4 mm/hr (0-30)
== END ==
LOC: LAB 10:47
PROVIDERS: Family Medicine
DX: Z00.00 Encounter for general adult medical examination without abnormal findings (principal); Z13.220 Encounter for screening for lipoid disorders; M00.9 Pyogenic arthritis, unspecified; E03.9 Hypothyroidism, unspecified; E55.9 Vitamin D deficiency, unspecified; G93.40 Encephalopathy, unspecified

== ENCOUNTER → 2019-04-29 | Outpatient (CLI) | payer MEDICARE, OTHER ==
[2019-04-16 12:41] VITALS: BP 186/81
== END ==
LOC: RAD 10:46
DX: R60.0 Localized edema (principal)

== ENCOUNTER → 2019-05-02 | Outpatient (CLI) | payer MEDICARE, OTHER ==
[2019-04-16 12:41] VITALS: BP 186/81
== END ==
LOC: MAMMO 07:45
DX: Z12.31 Encounter for screening mammogram for malignant neoplasm of breast (principal)

== ENCOUNTER → 2019-05-14 | Outpatient (CLI) | payer MEDICARE, OTHER ==
[2019-04-16 12:41] VITALS: BP 186/81
[2019-05-14 15:11] LABS: EOS # 0.2 (0.04-0.40); EOS % 1.4 % (1.0-5.0); HEMATOCRIT 36.4 % (37.0-47.0); HEMOGLOBIN 11.6 g/dL (12.5-16.0); LYMPH# 1.6 (1.50-4.00); MEAN CELL VOLUME 94 fl (78-100); MEAN CORPUSCULAR HEMOGLOBIN 30 pg (27-31); MEAN CORPUSCULAR HGB CONC 32 g/dL (33-37); MEAN PLATELET VOLUME 9.4 fl (7.4-10.4); MONO # 1.2 (0.20-0.80); PLATELET COUNT 265 K/mm3 (130-400); RED BLOOD COUNT 3.89 M/mm3 (4.10-5.30); RED CELL DISTRIBUTION WIDTH 13.2 % (11.5-14.5)
[2019-05-14 15:18] LABS: ALBUMIN 3.8 g/dL (3.4-4.8); POTASSIUM 4.9 mmol/L (3.5-5.1)
[2019-05-14 15:19] LABS: CALCIUM 9.8 mg/dL (8.3-10.5)
[2019-05-14 15:20] LABS: TOTAL PROTEIN 7.6 g/dL (6.2-8.1)
[2019-05-14 15:22] LABS: TOTAL BILIRUBIN 0.2 mg/dL (0.2-1.2)
== END ==
LOC: LAB 14:41
PROVIDERS: Family Medicine
DX: R19.7 Diarrhea, unspecified (principal); R53.83 Other fatigue

== ENCOUNTER → 2019-05-15 | Outpatient (CLI) | payer MEDICARE, OTHER ==
[2019-04-16 12:41] VITALS: BP 186/81
[~2019-05-15] MED LIST changes: +DIFLUCAN100 M1 PO; +METRONIDAZOLE500 M1 PO; +PROBIOTIC1 EAC1 PO; +SEROQUEL 2525 MG/TAB PO
[2019-05-15 07:55] LABS: URINE WBC 0 /hpf (0-3)
[2019-05-15 08:52] LABS: URINE APPEARANCE CLEAR; URINE BILIRUBIN NEGATIVE (NEGATIVE); URINE BLOOD NEGATIVE (NEGATIVE); URINE COLOR YELLOW; URINE GLUCOSE NEGATIVE (NEGATIVE); URINE KETONE NEGATIVE (NEGATIVE); URINE LEUKOCYTE ESTERASE NEGATIVE (NEGATIVE); URINE NITRATE NEGATIVE (NEGATIVE); URINE PROTEIN(semi-quant) TRACE mg/dL (NEGATIVE); URINE UROBILINOGEN NORMAL (NORMAL)
== END ==
LOC: LAB 07:49
PROVIDERS: Family Medicine
DX: R19.7 Diarrhea, unspecified (principal); R53.83 Other fatigue

== ENCOUNTER 2019-05-20 13:35 | Observation (INO) | payer MEDICARE, OTHER ==
[~2019-05-20] VITALS: Ht 162.6 cm; Wt 81.7 kg
[~2019-05-20 13:35] MED LIST changes: -DIFLUCAN100 M1 PO; -METRONIDAZOLE500 M1 PO; -PROBIOTIC1 EAC1 PO; -SEROQUEL 2525 MG/TAB PO
[2019-05-20] MEDS ORDERED: METRONIDAZOLE500 M1 PO (15:36)
[2019-05-20] MEDS ORDERED: ZOFRAN ODT4 MG PO (15:38)
[2019-05-20] MEDS ORDERED: SEROQUEL 2525 MG/TAB PO (15:47)
[2019-05-20] MEDS ORDERED: DIFLUCAN100 M1 PO (15:50)
[2019-05-20] MEDS ORDERED: BACTRIM DS 8001 TAB PO (15:52)
[2019-05-20 19:00] VITALS: BP 133/52
[2019-05-20 19:38] VITALS: BP 133/52
[2019-05-20 23:56] VITALS: BP 141/62
[2019-05-21 03:00] VITALS: BP 157/77
[2019-05-21 06:21] VITALS: BP 151/75
[2019-05-21 07:23] LABS: POTASSIUM 5.7 mmol/L (3.5-5.1)
[2019-05-21 07:24] LABS: CALCIUM 9.4 mg/dL (8.3-10.5)
[2019-05-21] MEDS ORDERED: PROBIOTIC1 EAC1 PO (08:35)
[2019-05-21 11:00] VITALS: BP 160/61
[2019-05-21 12:54] LABS: POTASSIUM 5.2 mmol/L (3.5-5.1)
[2019-05-21 12:55] LABS: CALCIUM 9.7 mg/dL (8.3-10.5)
[2019-05-21 15:35] VITALS: BP 129/58
== END 2019-05-21 17:00 | disposition home or self-care (01) ==
LOC: ED 13:35 → MED/SURG 15:43
PROVIDERS: ADMIT Nurse Practitioner Primary Care
DX: E87.5 Hyperkalemia (principal); A04.72 Enterocolitis due to Clostridium difficile, not specified as recurrent; M25.462 Effusion, left knee; I12.9 Hypertensive chronic kidney disease with stage 1 through stage 4 chronic kidney disease, or unspecified chronic kidney disease; N18.3 Chronic kidney disease, stage 3 (moderate); E89.0 Postprocedural hypothyroidism; K21.9 Gastro-esophageal reflux disease without esophagitis; E78.5 Hyperlipidemia, unspecified; F32.9 Major depressive disorder, single episode, unspecified; Z98.51 Tubal ligation status; Z96.652 Presence of left artificial knee joint; Z79.899 Other long term (current) drug therapy; M19.90 Unspecified osteoarthritis, unspecified site
CPT/HCPCS: G0378; J1815

== ENCOUNTER → 2019-05-20 | Outpatient (CLI) | payer MEDICARE, OTHER ==
[2019-05-20 09:40] LABS: EOS # 0.2 (0.04-0.40); EOS % 2.8 % (1.0-5.0); HEMATOCRIT 36.2 % (37.0-47.0); HEMOGLOBIN 11.4 g/dL (12.5-16.0); LYMPH# 1.6 (1.50-4.00); MEAN CELL VOLUME 93 fl (78-100); MEAN CORPUSCULAR HEMOGLOBIN 29 pg (27-31); MEAN CORPUSCULAR HGB CONC 32 g/dL (33-37); MONO # 0.7 (0.20-0.80); PLATELET COUNT 288 K/mm3 (130-400); RED CELL DISTRIBUTION WIDTH 13.3 % (11.5-14.5); WHITE BLOOD COUNT 8.5 K/mm3 (4.8-10.8)
[2019-05-20 10:48] LABS: ERYTHROCYTE SEDIMENTATION RATE 96 mm/hr (0-30)
[2019-05-20 11:51] LABS: ALBUMIN 3.6 g/dL (3.4-4.8); CALCIUM 10.5 mg/dL (8.3-10.5); TOTAL BILIRUBIN 0.3 mg/dL (0.2-1.2); TOTAL PROTEIN 7.2 g/dL (6.2-8.1)
[2019-05-20 11:53] LABS: POTASSIUM 5.8 mmol/L (3.5-5.1)
== END ==
LOC: LAB 09:23
PROVIDERS: Internal Medicine Infectious Disease
DX: M00.9 Pyogenic arthritis, unspecified (principal)

== ENCOUNTER → 2019-05-29 | Outpatient (CLI) | payer MEDICARE, OTHER ==
[2019-05-21 15:35] VITALS: BP 129/58
[~2019-05-29] MED LIST changes: +DIFLUCAN100 M1 PO; +METRONIDAZOLE500 M1 PO; +PROBIOTIC1 EAC1 PO; +SEROQUEL 2525 MG/TAB PO
[2019-05-29 09:18] LABS: EOS # 0.2 (0.04-0.40); EOS % 2.2 % (1.0-5.0); HEMATOCRIT 33.4 % (37.0-47.0); HEMOGLOBIN 10.6 g/dL (12.5-16.0); LYMPH# 1.6 (1.50-4.00); MEAN CELL VOLUME 95 fl (78-100); MEAN CORPUSCULAR HEMOGLOBIN 30 pg (27-31); MEAN CORPUSCULAR HGB CONC 32 g/dL (33-37); MEAN PLATELET VOLUME 9.2 fl (7.4-10.4); MONO # 0.6 (0.20-0.80); NEU # 6.8 (1.40-6.50); PLATELET COUNT 395 K/mm3 (130-400); RED BLOOD COUNT 3.53 M/mm3 (4.10-5.30); RED CELL DISTRIBUTION WIDTH 13.1 % (11.5-14.5); WHITE BLOOD COUNT 9.2 K/mm3 (4.8-10.8)
[2019-05-29 09:21] LABS: ALBUMIN 3.5 g/dL (3.4-4.8); POTASSIUM 4.8 mmol/L (3.5-5.1)
[2019-05-29 09:23] LABS: CALCIUM 9.5 mg/dL (8.3-10.5)
[2019-05-29 09:24] LABS: TOTAL PROTEIN 7.4 g/dL (6.2-8.1)
[2019-05-29 09:26] LABS: TOTAL BILIRUBIN 0.3 mg/dL (0.2-1.2)
[2019-05-29 10:19] LABS: ERYTHROCYTE SEDIMENTATION RATE 109 mm/hr (0-30)
== END ==
LOC: LAB 08:47
PROVIDERS: Internal Medicine Infectious Disease
DX: M00.9 Pyogenic arthritis, unspecified (principal); A04.72 Enterocolitis due to Clostridium difficile, not specified as recurrent

== ENCOUNTER → 2019-06-03 | Outpatient (CLI) | payer MEDICARE, OTHER ==
[2019-05-21 15:35] VITALS: BP 129/58
[~2019-06-03] MED LIST changes: +ACETAMINOPHEN-H1 TA2 PO; +ECOTRIN325 M1; +[UNRECOGNIZED DRUG - OTHER] PO
[2019-06-03 09:03] LABS: EOS # 0.1 (0.04-0.40); EOS % 1.6 % (1.0-5.0); HEMATOCRIT 32.9 % (37.0-47.0); HEMOGLOBIN 10.3 g/dL (12.5-16.0); LYMPH# 1.4 (1.50-4.00); MEAN CELL VOLUME 94 fl (78-100); MEAN CORPUSCULAR HEMOGLOBIN 29 pg (27-31); MEAN CORPUSCULAR HGB CONC 31 g/dL (33-37); MEAN PLATELET VOLUME 8.9 fl (7.4-10.4); MONO # 0.7 (0.20-0.80); NEU # 4.5 (1.40-6.50); PLATELET COUNT 404 K/mm3 (130-400); RED CELL DISTRIBUTION WIDTH 13.2 % (11.5-14.5); WHITE BLOOD COUNT 6.8 K/mm3 (4.8-10.8)
[2019-06-03 09:09] LABS: ALBUMIN 3.6 g/dL (3.4-4.8); POTASSIUM 4.9 mmol/L (3.5-5.1)
[2019-06-03 09:10] LABS: CALCIUM 9.7 mg/dL (8.3-10.5)
[2019-06-03 09:11] LABS: TOTAL PROTEIN 7.8 g/dL (6.2-8.1)
[2019-06-03 09:13] LABS: TOTAL BILIRUBIN 0.2 mg/dL (0.2-1.2)
[2019-06-03 10:46] LABS: PROTHROMBIN TIME 9.9 SECONDS (9.0-12.0)
[2019-06-03 11:15] LABS: ERYTHROCYTE SEDIMENTATION RATE 126 mm/hr (0-30)
[2019-06-03 12:20] LABS: URINE APPEARANCE HAZY; URINE COLOR YELLOW
[2019-06-03 12:21] LABS: URINE BILIRUBIN NEGATIVE (NEGATIVE); URINE BLOOD TRACE (NEGATIVE); URINE GLUCOSE NEGATIVE (NEGATIVE); URINE KETONE NEGATIVE (NEGATIVE); URINE LEUKOCYTE ESTERASE TRACE (NEGATIVE); URINE NITRATE NEGATIVE (NEGATIVE); URINE PROTEIN(semi-quant) TRACE mg/dL (NEGATIVE); URINE UROBILINOGEN NORMAL (NORMAL)
[2019-06-03 12:22] LABS: URINE MUCUS PRESENT (NOT PRESENT)
== END ==
LOC: LAB 08:34
PROVIDERS: Orthopaedic Surgery Sports Medicine
DX: Z01.818 Encounter for other preprocedural examination (principal); T84.54XS Infection and inflammatory reaction due to internal left knee prosthesis, sequela; A04.72 Enterocolitis due to Clostridium difficile, not specified as recurrent; A49.02 Methicillin resistant Staphylococcus aureus infection, unspecified site

== ENCOUNTER → 2019-06-11 | Outpatient (CLI) | payer MEDICARE, OTHER ==
[2019-06-10 17:55] VITALS: BP 178/71
[2019-06-11 19:51] LABS: ALBUMIN 3.2 g/dL (3.4-4.8); POTASSIUM 4.8 mmol/L (3.5-5.1)
[2019-06-11 19:52] LABS: CALCIUM 9.7 mg/dL (8.3-10.5)
[2019-06-11 19:54] LABS: TOTAL PROTEIN 6.6 g/dL (6.2-8.1)
[2019-06-11 19:55] LABS: TOTAL BILIRUBIN 0.2 mg/dL (0.2-1.2)
[2019-06-11 20:40] LABS: BASO # 0.1 (0.02-0.10); EOS # 0.6 (0.04-0.40); EOS % 7.9 % (1.0-5.0); HEMATOCRIT 27.4 % (37.0-47.0); HEMOGLOBIN 8.7 g/dL (12.5-16.0); LYMPH# 1.6 (1.50-4.00); MEAN CELL VOLUME 96 fl (78-100); MEAN CORPUSCULAR HEMOGLOBIN 30 pg (27-31); MEAN CORPUSCULAR HGB CONC 32 g/dL (33-37); MEAN PLATELET VOLUME 9.7 fl (7.4-10.4); MONO # 0.6 (0.20-0.80); NEU # 4.7 (1.40-6.50); PLATELET COUNT 347 K/mm3 (130-400); RED BLOOD COUNT 2.87 M/mm3 (4.10-5.30); RED CELL DISTRIBUTION WIDTH 13.2 % (11.5-14.5); WHITE BLOOD COUNT 7.6 K/mm3 (4.8-10.8)
[2019-06-11 22:47] LABS: ERYTHROCYTE SEDIMENTATION RATE 103 mm/hr (0-30)
== END ==
LOC: LAB 17:21
PROVIDERS: Nurse Practitioner Family
DX: T81.49XA Infection following a procedure, other surgical site, initial encounter (principal); M00.9 Pyogenic arthritis, unspecified; B95.8 Unspecified staphylococcus as the cause of diseases classified elsewhere

== ENCOUNTER → 2019-06-18 | Outpatient (CLI) | payer MEDICARE, OTHER ==
[2019-06-17 17:10] VITALS: BP 168/82
[2019-06-18 17:48] LABS: EOS # 0.3 (0.04-0.40); EOS % 4.7 % (1.0-5.0); HEMATOCRIT 29.7 % (37.0-47.0); HEMOGLOBIN 9.3 g/dL (12.5-16.0); LYMPH# 1.7 (1.50-4.00); MEAN CELL VOLUME 95 fl (78-100); MEAN CORPUSCULAR HEMOGLOBIN 30 pg (27-31); MEAN CORPUSCULAR HGB CONC 31 g/dL (33-37); MEAN PLATELET VOLUME 9.3 fl (7.4-10.4); MONO # 0.7 (0.20-0.80); NEU # 4.4 (1.40-6.50); PLATELET COUNT 326 K/mm3 (130-400); RED BLOOD COUNT 3.13 M/mm3 (4.10-5.30); RED CELL DISTRIBUTION WIDTH 13.7 % (11.5-14.5); WHITE BLOOD COUNT 7.3 K/mm3 (4.8-10.8)
[2019-06-18 17:58] LABS: ALBUMIN 3.5 g/dL (3.4-4.8); POTASSIUM 5.5 mmol/L (3.5-5.1)
[2019-06-18 17:59] LABS: CALCIUM 9.9 mg/dL (8.3-10.5)
[2019-06-18 18:01] LABS: TOTAL PROTEIN 7.1 g/dL (6.2-8.1)
[2019-06-18 18:02] LABS: TOTAL BILIRUBIN 0.2 mg/dL (0.2-1.2)
[2019-06-18 18:53] LABS: ERYTHROCYTE SEDIMENTATION RATE 89 mm/hr (0-30)
== END ==
LOC: LAB 17:16
PROVIDERS: Nurse Practitioner Family
DX: T81.49XA Infection following a procedure, other surgical site, initial encounter (principal); M00.9 Pyogenic arthritis, unspecified; B95.8 Unspecified staphylococcus as the cause of diseases classified elsewhere

== ENCOUNTER → 2019-06-20 | Outpatient (CLI) | payer MEDICARE, OTHER ==
[2019-06-20 17:19] VITALS: BP 185/77
[2019-06-20 18:17] LABS: ALBUMIN 3.7 g/dL (3.4-4.8); POTASSIUM 5.3 mmol/L (3.5-5.1)
[2019-06-20 18:18] LABS: CALCIUM 9.6 mg/dL (8.3-10.5)
[2019-06-20 18:19] LABS: TOTAL PROTEIN 6.7 g/dL (6.2-8.1)
[2019-06-20 18:21] LABS: TOTAL BILIRUBIN 0.3 mg/dL (0.2-1.2)
== END ==
LOC: LAB 17:39
DX: M00.9 Pyogenic arthritis, unspecified (principal)

== ENCOUNTER → 2019-06-24 | Outpatient (CLI) | payer MEDICARE, OTHER ==
[2019-06-22 17:22] VITALS: BP 169/93
[2019-06-24 16:42] LABS: EOS # 0.3 (0.04-0.40); EOS % 4.9 % (1.0-5.0); HEMOGLOBIN 9.4 g/dL (12.5-16.0); LYMPH# 1.7 (1.50-4.00); MEAN CELL VOLUME 94 fl (78-100); MEAN CORPUSCULAR HEMOGLOBIN 29 pg (27-31); MEAN CORPUSCULAR HGB CONC 31 g/dL (33-37); MEAN PLATELET VOLUME 9.4 fl (7.4-10.4); MONO # 0.6 (0.20-0.80); NEU # 3.9 (1.40-6.50); PLATELET COUNT 266 K/mm3 (130-400); RED CELL DISTRIBUTION WIDTH 13.6 % (11.5-14.5); WHITE BLOOD COUNT 6.6 K/mm3 (4.8-10.8)
[2019-06-24 16:47] LABS: ALBUMIN 3.8 g/dL (3.4-4.8); POTASSIUM 5.4 mmol/L (3.5-5.1)
[2019-06-24 16:49] LABS: TOTAL PROTEIN 7.1 g/dL (6.2-8.1)
[2019-06-24 16:51] LABS: TOTAL BILIRUBIN 0.2 mg/dL (0.2-1.2)
[2019-06-24 18:00] LABS: ERYTHROCYTE SEDIMENTATION RATE 75 mm/hr (0-30)
== END ==
LOC: LAB 16:17
PROVIDERS: Internal Medicine Infectious Disease
DX: T81.49XA Infection following a procedure, other surgical site, initial encounter (principal); M00.9 Pyogenic arthritis, unspecified; B95.8 Unspecified staphylococcus as the cause of diseases classified elsewhere

== ENCOUNTER → 2019-07-02 | Outpatient (CLI) | payer MEDICARE, OTHER ==
[2019-06-30 16:36] VITALS: BP 156/78
[2019-07-02 17:16] LABS: EOS # 0.4 (0.04-0.40); HEMATOCRIT 27.8 % (37.0-47.0); HEMOGLOBIN 8.4 g/dL (12.5-16.0); LYMPH# 1.7 (1.50-4.00); MEAN CELL VOLUME 96 fl (78-100); MEAN CORPUSCULAR HEMOGLOBIN 29 pg (27-31); MEAN CORPUSCULAR HGB CONC 30 g/dL (33-37); MEAN PLATELET VOLUME 9.8 fl (7.4-10.4); MONO # 0.6 (0.20-0.80); NEU # 3.3 (1.40-6.50); PLATELET COUNT 212 K/mm3 (130-400); RED CELL DISTRIBUTION WIDTH 13.6 % (11.5-14.5)
[2019-07-02 17:25] LABS: ALBUMIN 3.8 g/dL (3.4-4.8)
[2019-07-02 17:27] LABS: CALCIUM 9.3 mg/dL (8.3-10.5)
[2019-07-02 17:28] LABS: TOTAL PROTEIN 6.8 g/dL (6.2-8.1)
[2019-07-02 17:30] LABS: TOTAL BILIRUBIN 0.3 mg/dL (0.2-1.2)
[2019-07-02 17:46] LABS: POTASSIUM 5.8 mmol/L (3.5-5.1)
[2019-07-02 18:17] LABS: ERYTHROCYTE SEDIMENTATION RATE 68 mm/hr (0-30)
== END ==
LOC: LAB 16:18
PROVIDERS: Internal Medicine Infectious Disease
DX: T81.49XA Infection following a procedure, other surgical site, initial encounter (principal); M00.9 Pyogenic arthritis, unspecified; B95.8 Unspecified staphylococcus as the cause of diseases classified elsewhere

== ENCOUNTER 2019-07-05 11:00 | Outpatient (RCR) | payer MEDICARE, OTHER ==
[2019-06-11 19:06] VITALS: BP 156/67
[2019-07-17] MEDS ORDERED: AMOXICILLIN AND1 TAB PO (16:13)
== END 2019-07-05 11:30 | disposition still patient (30) ==
LOC: PT 11:00
DX: Z98.890 Other specified postprocedural states (principal)

== ENCOUNTER 2019-07-06 16:07 | Outpatient (RCR) | payer MEDICARE, OTHER ==
[2019-06-09 17:31] VITALS: BP 129/46
[2019-06-10 17:55] VITALS: BP 178/71
[2019-06-11 19:06] VITALS: BP 156/67
[2019-06-12 17:30] VITALS: BP 166/78
[2019-06-13 17:38] VITALS: BP 189/89
[2019-06-14 17:29] VITALS: BP 170/74
[2019-06-15 17:37] VITALS: BP 162/73
[2019-06-16 17:29] VITALS: BP 158/64
[2019-06-17 17:10] VITALS: BP 168/82
[2019-06-18 18:38] VITALS: BP 170/67
[2019-06-19 17:47] VITALS: BP 162/75
[2019-06-20 17:19] VITALS: BP 185/77
[2019-06-22 17:22] VITALS: BP 169/93
[2019-06-24 16:26] VITALS: BP 197/75
[2019-06-26 16:56] VITALS: BP 173/105
--- NOTE | 2019-06-26 17:00 | NUR ---
Dr. Davalos notified of high blood pressure.
[2019-06-28 16:15] VITALS: BP 194/74
[2019-06-30 16:36] VITALS: BP 156/78
[2019-07-02 17:17] VITALS: BP 201/80
[2019-07-04 16:28] VITALS: BP 196/84
[~2019-07-06] VITALS: Ht 162.6 cm; Wt 81.8 kg
[2019-07-06 16:23] VITALS: BP 178/86
[2019-07-17] MEDS ORDERED: AMOXICILLIN AND1 TAB PO (16:13)
== END 2019-07-06 18:00 | disposition home or self-care (01) ==
LOC: AMSURD 16:07
DX: T84.54XS Infection and inflammatory reaction due to internal left knee prosthesis, sequela (principal); M00.9 Pyogenic arthritis, unspecified; N18.9 Chronic kidney disease, unspecified; Z22.322 Carrier or suspected carrier of Methicillin resistant Staphylococcus aureus; A49.02 Methicillin resistant Staphylococcus aureus infection, unspecified site
CPT/HCPCS: J0878

== ENCOUNTER 2019-07-08 08:16 | Emergency (ER) | payer MEDICARE, OTHER ==
[~2019-07-08] VITALS: Ht 162.6 cm; Wt 81.8 kg
[2019-07-08 09:02] LABS: ALBUMIN 3.8 g/dL (3.4-4.8); EOS # 0.3 (0.04-0.40); EOS % 4.8 % (1.0-5.0); HEMOGLOBIN 8.4 g/dL (12.5-16.0); LYMPH# 0.9 (1.50-4.00); MEAN CELL VOLUME 94 fl (78-100); MEAN CORPUSCULAR HEMOGLOBIN 29 pg (27-31); MEAN CORPUSCULAR HGB CONC 31 g/dL (33-37); MEAN PLATELET VOLUME 10.3 fl (7.4-10.4); MONO # 0.4 (0.20-0.80); NEU # 4.6 (1.40-6.50); PLATELET COUNT 193 K/mm3 (130-400); POTASSIUM 5.5 mmol/L (3.5-5.1); RED BLOOD COUNT 2.86 M/mm3 (4.10-5.30); RED CELL DISTRIBUTION WIDTH 13.4 % (11.5-14.5); WHITE BLOOD COUNT 6.3 K/mm3 (4.8-10.8)
[2019-07-08 09:04] LABS: CALCIUM 9.8 mg/dL (8.3-10.5)
[2019-07-08 09:05] LABS: TOTAL PROTEIN 6.5 g/dL (6.2-8.1)
[2019-07-08 09:07] LABS: TOTAL BILIRUBIN 0.3 mg/dL (0.2-1.2)
[2019-07-08 09:12] LABS: MAGNESIUM 1.48 mg/dL (1.60-2.60)
[2019-07-08 10:47] LABS: URINE APPEARANCE CLEAR; URINE COLOR YELLOW
[2019-07-08 10:48] LABS: URINE BILIRUBIN NEGATIVE (NEGATIVE); URINE BLOOD 50 ery/uL (NEGATIVE); URINE GLUCOSE NEGATIVE (NEGATIVE); URINE KETONE NEGATIVE (NEGATIVE); URINE LEUKOCYTE ESTERASE NEGATIVE (NEGATIVE); URINE MUCUS PRESENT (NOT PRESENT); URINE NITRATE NEGATIVE (NEGATIVE); URINE PROTEIN(semi-quant) 1+ mg/dL (NEGATIVE); URINE UROBILINOGEN NORMAL (NORMAL); URINE WBC 0-1 /hpf (0-3)
[2019-07-08] MEDS ORDERED: PROTONIX TR40 M1 PO (11:13)
[2019-07-08] MEDS ORDERED: KRILL OIL 3501 EACH PO (11:13)
[2019-07-08] MEDS ORDERED: CUBICIN 500MG500 MG IV (11:15)
[2019-07-08 12:06] LABS: ERYTHROCYTE SEDIMENTATION RATE 60 mm/hr (0-30)
[2019-07-08 14:25] VITALS: BP 144/56
== END 2019-07-08 14:33 | disposition short-term general hospital (02) ==
LOC: ED 08:16
PROVIDERS: Nurse Practitioner Primary Care
DX: I16.0 Hypertensive urgency (principal); N19 Unspecified kidney failure; E87.5 Hyperkalemia; R11.2 Nausea with vomiting, unspecified; I10 Essential (primary) hypertension; F32.9 Major depressive disorder, single episode, unspecified; K21.9 Gastro-esophageal reflux disease without esophagitis; Z79.82 Long term (current) use of aspirin; Z98.890 Other specified postprocedural states
CPT/HCPCS: J1200; J2270; J2405; J2550; J7030

== ENCOUNTER → 2019-07-16 | Outpatient (CLI) | payer MEDICARE, OTHER ==
[2019-07-08 14:25] VITALS: BP 144/56
[~2019-07-16] MED LIST changes: +AMOXICILLIN AND1 TAB PO; +CUBICIN 500MG500 MG IV; +KRILL OIL 3501 EACH PO; +PROTONIX TR40 M1 PO
[2019-07-16 10:35] LABS: HEMATOCRIT 29.4 % (37.0-47.0); HEMOGLOBIN 9.6 g/dL (12.5-16.0); MEAN CELL VOLUME 92 fl (78-100); MEAN CORPUSCULAR HEMOGLOBIN 30 pg (27-31); MEAN CORPUSCULAR HGB CONC 33 g/dL (33-37); MEAN PLATELET VOLUME 9.5 fl (7.4-10.4); PLATELET COUNT 174 K/mm3 (130-400); RED BLOOD COUNT 3.21 M/mm3 (4.10-5.30); RED CELL DISTRIBUTION WIDTH 13.9 % (11.5-14.5)
[2019-07-16 10:45] LABS: ALBUMIN 3.4 g/dL (3.4-4.8); POTASSIUM 3.3 mmol/L (3.5-5.1)
[2019-07-16 10:46] LABS: CALCIUM 8.8 mg/dL (8.3-10.5)
[2019-07-16 10:47] LABS: TOTAL PROTEIN 6.6 g/dL (6.2-8.1)
[2019-07-16 10:49] LABS: TOTAL BILIRUBIN 0.7 mg/dL (0.2-1.2)
[2019-07-16 11:02] LABS: LYMPHOCYTE 9 % (20-51); MONOCYTE 7 % (3-10); NEUTROPHILS 84 % (42-75)
[2019-07-16 11:40] LABS: ERYTHROCYTE SEDIMENTATION RATE 82 mm/hr (0-30); TROPONIN-I 0.03 ng/mL (<0.030)
== END ==
LOC: RAD 10:17
PROVIDERS: Family Medicine
DX: I51.7 Cardiomegaly (principal); J90 Pleural effusion, not elsewhere classified; M00.9 Pyogenic arthritis, unspecified; E03.9 Hypothyroidism, unspecified; A04.72 Enterocolitis due to Clostridium difficile, not specified as recurrent

== ENCOUNTER → 2019-07-22 | Outpatient (CLI) | payer MEDICARE, OTHER ==
[2019-07-21 15:45] VITALS: BP 127/43
[2019-07-22 11:01] LABS: POTASSIUM 3.7 mmol/L (3.5-5.1)
[2019-07-22 11:02] LABS: CALCIUM 9.2 mg/dL (8.3-10.5)
== END ==
LOC: LAB 10:35
PROVIDERS: Internal Medicine Nephrology
DX: N17.8 Other acute kidney failure (principal)

== ENCOUNTER → 2019-07-23 | Outpatient (CLI) | payer MEDICARE, OTHER ==
[2019-07-21 15:45] VITALS: BP 127/43
[2019-07-23 16:07] LABS: HEMATOCRIT 32.7 % (37.0-47.0); RED BLOOD COUNT 3.45 M/mm3 (4.10-5.30); RED CELL DISTRIBUTION WIDTH 14.3 % (11.5-14.5); WHITE BLOOD COUNT 6.6 K/mm3 (4.8-10.8)
[2019-07-23 16:18] LABS: ALBUMIN 3.6 g/dL (3.4-4.8); POTASSIUM 3.8 mmol/L (3.5-5.1)
[2019-07-23 16:20] LABS: CALCIUM 8.9 mg/dL (8.3-10.5)
[2019-07-23 16:21] LABS: TOTAL PROTEIN 6.7 g/dL (6.2-8.1)
[2019-07-23 16:23] LABS: TOTAL BILIRUBIN 0.3 mg/dL (0.2-1.2)
== END ==
LOC: AMSURD 15:45
PROVIDERS: Nurse Practitioner Family
DX: T81.49XA Infection following a procedure, other surgical site, initial encounter (principal); M00.9 Pyogenic arthritis, unspecified; B95.8 Unspecified staphylococcus as the cause of diseases classified elsewhere

== ENCOUNTER → 2019-07-30 | Outpatient (CLI) | payer MEDICARE, OTHER ==
[2019-07-29 16:30] VITALS: BP 163/71
[2019-07-30 12:00] LABS: BASO # 0.1 (0.02-0.10); EOS # 0.4 (0.04-0.40); EOS % 5.6 % (1.0-5.0); HEMOGLOBIN 10.8 g/dL (12.5-16.0); LYMPH# 1.9 (1.50-4.00); MEAN CELL VOLUME 92 fl (78-100); MEAN CORPUSCULAR HEMOGLOBIN 29 pg (27-31); MEAN CORPUSCULAR HGB CONC 32 g/dL (33-37); MEAN PLATELET VOLUME 8.9 fl (7.4-10.4); MONO # 0.6 (0.20-0.80); PLATELET COUNT 307 K/mm3 (130-400); RED BLOOD COUNT 3.69 M/mm3 (4.10-5.30); RED CELL DISTRIBUTION WIDTH 13.9 % (11.5-14.5)
[2019-07-30 12:11] LABS: POTASSIUM 4.4 mmol/L (3.5-5.1)
[2019-07-30 12:14] LABS: TOTAL PROTEIN 7.1 g/dL (6.2-8.1)
[2019-07-30 12:16] LABS: TOTAL BILIRUBIN 0.4 mg/dL (0.2-1.2)
[2019-07-30 12:59] LABS: ERYTHROCYTE SEDIMENTATION RATE 57 mm/hr (0-30)
== END ==
LOC: AMSURD 11:39 → LAB 11:39
PROVIDERS: Nurse Practitioner Primary Care
DX: T84.54XA Infection and inflammatory reaction due to internal left knee prosthesis, initial encounter (principal); B95.8 Unspecified staphylococcus as the cause of diseases classified elsewhere; I15.0 Renovascular hypertension; N18.3 Chronic kidney disease, stage 3 (moderate)

== ENCOUNTER → 2019-08-06 | Outpatient (CLI) | payer MEDICARE, OTHER ==
[2019-08-05 10:30] VITALS: BP 128/67
[2019-08-06 17:42] LABS: BASO # 0.1 (0.02-0.10); EOS # 0.4 (0.04-0.40); EOS % 4.7 % (1.0-5.0); HEMATOCRIT 34.1 % (37.0-47.0); HEMOGLOBIN 10.8 g/dL (12.5-16.0); LYMPH# 2.1 (1.50-4.00); MEAN CELL VOLUME 95 fl (78-100); MEAN CORPUSCULAR HEMOGLOBIN 30 pg (27-31); MEAN CORPUSCULAR HGB CONC 32 g/dL (33-37); MEAN PLATELET VOLUME 11.2 fl (7.4-10.4); MONO # 0.8 (0.20-0.80); NEU # 4.2 (1.40-6.50); PLATELET COUNT 225 K/mm3 (130-400); RED BLOOD COUNT 3.61 M/mm3 (4.10-5.30); RED CELL DISTRIBUTION WIDTH 13.8 % (11.5-14.5); WHITE BLOOD COUNT 7.5 K/mm3 (4.8-10.8)
[2019-08-06 17:57] LABS: POTASSIUM 5.2 mmol/L (3.5-5.1)
[2019-08-06 17:58] LABS: ALBUMIN 4.1 g/dL (3.4-4.8); CALCIUM 9.7 mg/dL (8.3-10.5)
[2019-08-06 18:00] LABS: TOTAL PROTEIN 7.4 g/dL (6.2-8.1)
[2019-08-06 18:02] LABS: TOTAL BILIRUBIN 0.4 mg/dL (0.2-1.2)
[2019-08-06 18:52] LABS: ERYTHROCYTE SEDIMENTATION RATE 51 mm/hr (0-30)
== END ==
LOC: LAB 15:26
PROVIDERS: Nurse Practitioner Family
DX: T81.49XA Infection following a procedure, other surgical site, initial encounter (principal); M00.062 Staphylococcal arthritis, left knee; I15.0 Renovascular hypertension; N18.3 Chronic kidney disease, stage 3 (moderate)

== ENCOUNTER → 2019-08-09 | Outpatient (CLI) | payer MEDICARE, OTHER ==
[2019-08-08 15:37] VITALS: BP 135/78
[2019-08-09 10:26] LABS: ALBUMIN 3.9 g/dL (3.4-4.8)
[2019-08-09 10:27] LABS: POTASSIUM 4.9 mmol/L (3.5-5.1)
[2019-08-09 10:28] LABS: CALCIUM 9.5 mg/dL (8.3-10.5)
== END ==
LOC: LAB 09:14
PROVIDERS: Family Medicine
DX: I15.0 Renovascular hypertension (principal); N18.3 Chronic kidney disease, stage 3 (moderate)

== ENCOUNTER → 2019-08-12 | Outpatient (CLI) | payer MEDICARE, OTHER ==
[2019-08-09 10:44] VITALS: BP 132/56
[2019-08-12 16:59] LABS: ALBUMIN 4.2 g/dL (3.4-4.8); POTASSIUM 5.2 mmol/L (3.5-5.1)
[2019-08-12 17:00] LABS: CALCIUM 9.9 mg/dL (8.3-10.5)
[2019-08-12 17:01] LABS: TOTAL PROTEIN 7.8 g/dL (6.2-8.1)
[2019-08-12 17:03] LABS: TOTAL BILIRUBIN 0.4 mg/dL (0.2-1.2)
== END ==
LOC: LAB 10:47 → AMSURD 10:47
PROVIDERS: Physician Assistant
DX: N18.3 Chronic kidney disease, stage 3 (moderate) (principal)

== ENCOUNTER → 2019-08-20 | Outpatient (CLI) | payer MEDICARE, OTHER ==
[2019-08-16 11:01] VITALS: BP 149/78
[2019-08-20 11:17] LABS: ALBUMIN 3.8 g/dL (3.4-4.8)
[2019-08-20 11:19] LABS: CALCIUM 9.3 mg/dL (8.3-10.5); EOS # 0.3 (0.04-0.40); EOS % 2.5 % (1.0-5.0); HEMATOCRIT 32.9 % (37.0-47.0); HEMOGLOBIN 10.3 g/dL (12.5-16.0); LYMPH# 1.8 (1.50-4.00); MEAN CELL VOLUME 92 fl (78-100); MEAN CORPUSCULAR HEMOGLOBIN 29 pg (27-31); MEAN CORPUSCULAR HGB CONC 31 g/dL (33-37); MEAN PLATELET VOLUME 9.9 fl (7.4-10.4); MONO # 0.7 (0.20-0.80); NEU # 7.2 (1.40-6.50); PLATELET COUNT 193 K/mm3 (130-400); RED BLOOD COUNT 3.58 M/mm3 (4.10-5.30); RED CELL DISTRIBUTION WIDTH 13.4 % (11.5-14.5); WHITE BLOOD COUNT 9.9 K/mm3 (4.8-10.8)
[2019-08-20 11:20] LABS: TOTAL PROTEIN 6.8 g/dL (6.2-8.1)
[2019-08-20 11:22] LABS: TOTAL BILIRUBIN 0.4 mg/dL (0.2-1.2)
[2019-08-20 12:19] LABS: ERYTHROCYTE SEDIMENTATION RATE 50 mm/hr (0-30)
== END ==
LOC: LAB 10:25
PROVIDERS: Nurse Practitioner Family
DX: T81.49XA Infection following a procedure, other surgical site, initial encounter (principal); M00.9 Pyogenic arthritis, unspecified; Z22.322 Carrier or suspected carrier of Methicillin resistant Staphylococcus aureus

== ENCOUNTER → 2019-09-03 | Outpatient (CLI) | payer MEDICARE, OTHER ==
[2019-08-30 10:21] VITALS: BP 130/58
[2019-09-03 10:27] LABS: EOS # 0.3 (0.04-0.40); EOS % 4.6 % (1.0-5.0); HEMATOCRIT 32.4 % (37.0-47.0); HEMOGLOBIN 10.1 g/dL (12.5-16.0); LYMPH# 1.5 (1.50-4.00); MEAN CELL VOLUME 92 fl (78-100); MEAN CORPUSCULAR HEMOGLOBIN 29 pg (27-31); MEAN CORPUSCULAR HGB CONC 31 g/dL (33-37); MEAN PLATELET VOLUME 9.3 fl (7.4-10.4); MONO # 0.6 (0.20-0.80); NEU # 4.4 (1.40-6.50); PLATELET COUNT 234 K/mm3 (130-400); RED BLOOD COUNT 3.51 M/mm3 (4.10-5.30); RED CELL DISTRIBUTION WIDTH 13.1 % (11.5-14.5); WHITE BLOOD COUNT 6.8 K/mm3 (4.8-10.8)
[2019-09-03 10:36] LABS: ALBUMIN 3.9 g/dL (3.4-4.8); POTASSIUM 4.2 mmol/L (3.5-5.1)
[2019-09-03 10:37] LABS: CALCIUM 9.4 mg/dL (8.3-10.5)
[2019-09-03 10:40] LABS: TOTAL BILIRUBIN 0.3 mg/dL (0.2-1.2)
[2019-09-03 11:27] LABS: ERYTHROCYTE SEDIMENTATION RATE 49 mm/hr (0-30)
== END ==
LOC: LAB 10:10
PROVIDERS: Internal Medicine Infectious Disease
DX: T81.49XA Infection following a procedure, other surgical site, initial encounter (principal); M00.9 Pyogenic arthritis, unspecified; Z22.322 Carrier or suspected carrier of Methicillin resistant Staphylococcus aureus

== ENCOUNTER → 2019-09-09 | Outpatient (CLI) | payer MEDICARE, OTHER ==
[2019-09-07 09:50] VITALS: BP 117/62
== END ==
LOC: LAB 07:42
DX: T81.49XA Infection following a procedure, other surgical site, initial encounter (principal); N28.9 Disorder of kidney and ureter, unspecified; A49.02 Methicillin resistant Staphylococcus aureus infection, unspecified site; A04.72 Enterocolitis due to Clostridium difficile, not specified as recurrent

== ENCOUNTER → 2019-09-16 | Outpatient (CLI) | payer MEDICARE, OTHER ==
[2019-09-13 16:09] VITALS: BP 158/74
== END ==
LOC: LAB 11:27
DX: T81.49XA Infection following a procedure, other surgical site, initial encounter (principal); A49.01 Methicillin susceptible Staphylococcus aureus infection, unspecified site

== ENCOUNTER → 2019-09-24 | Outpatient (CLI) | payer MEDICARE, OTHER ==
[2019-09-13 16:09] VITALS: BP 158/74
[2019-09-24 08:26] LABS: EOS # 0.2 (0.04-0.40); EOS % 3.1 % (1.0-5.0); HEMATOCRIT 32.5 % (37.0-47.0); HEMOGLOBIN 10.2 g/dL (12.5-16.0); LYMPH# 1.8 (1.50-4.00); MEAN CELL VOLUME 92 fl (78-100); MEAN CORPUSCULAR HEMOGLOBIN 29 pg (27-31); MEAN CORPUSCULAR HGB CONC 31 g/dL (33-37); MEAN PLATELET VOLUME 9.3 fl (7.4-10.4); MONO # 0.4 (0.20-0.80); NEU # 3.3 (1.40-6.50); PLATELET COUNT 278 K/mm3 (130-400); RED BLOOD COUNT 3.53 M/mm3 (4.10-5.30); RED CELL DISTRIBUTION WIDTH 13.4 % (11.5-14.5); WHITE BLOOD COUNT 5.7 K/mm3 (4.8-10.8)
[2019-09-24 08:41] LABS: ALBUMIN 4.3 g/dL (3.4-4.8); POTASSIUM 4.7 mmol/L (3.5-5.1)
[2019-09-24 08:42] LABS: CALCIUM 9.3 mg/dL (8.3-10.5)
[2019-09-24 08:44] LABS: TOTAL PROTEIN 7.5 g/dL (6.2-8.1)
[2019-09-24 09:21] LABS: TOTAL BILIRUBIN 0.3 mg/dL (0.2-1.2)
[2019-09-24 09:39] LABS: ERYTHROCYTE SEDIMENTATION RATE 61 mm/hr (0-30)
== END ==
LOC: LAB 08:06
PROVIDERS: Internal Medicine Infectious Disease
DX: T84.50XA Infection and inflammatory reaction due to unspecified internal joint prosthesis, initial encounter (principal); M00.9 Pyogenic arthritis, unspecified; Z22.322 Carrier or suspected carrier of Methicillin resistant Staphylococcus aureus

== ENCOUNTER 2019-10-11 10:01 | Outpatient (RCR) | payer MEDICARE, OTHER ==
[2019-07-17 15:47] VITALS: BP 155/63
[2019-07-19 16:06] VITALS: BP 150/59
[2019-07-21 15:45] VITALS: BP 127/43
[2019-07-23 15:55] VITALS: BP 148/63
[2019-07-25 15:40] VITALS: BP 142/63
[2019-07-27 15:32] VITALS: BP 140/53
[2019-07-29 16:30] VITALS: BP 163/71
[2019-07-31 15:39] VITALS: BP 147/76
[2019-08-02 15:48] VITALS: BP 161/69
[2019-08-05 10:30] VITALS: BP 128/67
[2019-08-06 15:41] VITALS: BP 134/78
[2019-08-08 15:37] VITALS: BP 135/78
[2019-08-09 10:44] VITALS: BP 132/56
[2019-08-16 11:01] VITALS: BP 149/78
[2019-08-23 10:29] VITALS: BP 106/47
[2019-08-30 10:21] VITALS: BP 130/58
[2019-09-07 09:50] VITALS: BP 117/62
[2019-09-13 16:09] VITALS: BP 158/74
[2019-09-27 10:21] VITALS: BP 126/52
[2019-10-04 10:00] VITALS: BP 134/82
[~2019-10-11] VITALS: Ht 162.6 cm; Wt 81.8 kg
[~2019-10-11 10:01] MED LIST changes: -CELEBREX 1100 MG/CAP PO; -CLONIDINE HYDR0.1 MG PO; -FISH OIL1 IU PO; -NORVASC2.5 MG PO; -SODIUM BICARBO325 MG PO; -VALIUM2 M1 PO
[2019-10-11 10:36] VITALS: BP 112/46
[2019-10-14] MEDS ORDERED: VALIUM2 M1 PO (15:20)
[2019-10-14] MEDS ORDERED: CLONIDINE HYDR0.1 MG PO (15:22)
[2019-10-14] MEDS ORDERED: SODIUM BICARBO325 MG PO (15:22)
[2019-10-14] MEDS ORDERED: NORVASC2.5 MG PO (15:23)
[2019-10-14] MEDS ORDERED: FISH OIL1 IU PO (15:24)
[2019-10-14] MEDS ORDERED: CELEBREX 1100 MG/CAP PO (15:24)
[2019-10-14] MEDS ORDERED: ZYRTEC ALLERGY10 MG PO (15:25)
== END 2019-10-15 | disposition still patient (30) ==
LOC: AMSURD
DX: T81.49XA Infection following a procedure, other surgical site, initial encounter (principal); M00.9 Pyogenic arthritis, unspecified; Z22.322 Carrier or suspected carrier of Methicillin resistant Staphylococcus aureus
CPT/HCPCS: J0878; J1644

== ENCOUNTER → 2019-10-11 | Outpatient (CLI) | payer MEDICARE, OTHER ==
[2019-10-04 10:00] VITALS: BP 134/82
[~2019-10-11] MED LIST changes: +CELEBREX 1100 MG/CAP PO; +CLONIDINE HYDR0.1 MG PO; +FISH OIL1 IU PO; +NORVASC2.5 MG PO; +SODIUM BICARBO325 MG PO; +VALIUM2 M1 PO
== END ==
LOC: LAB 10:04
DX: T84.50XA Infection and inflammatory reaction due to unspecified internal joint prosthesis, initial encounter (principal)

== ENCOUNTER 2019-10-14 12:02 | Emergency (ER) | payer MEDICARE, OTHER ==
[2019-10-14 12:17] LABS: HEMATOCRIT 30.7 % (37.0-47.0); HEMOGLOBIN 9.6 g/dL (12.5-16.0); MEAN CELL VOLUME 91 fl (78-100); MEAN CORPUSCULAR HEMOGLOBIN 29 pg (27-31); MEAN CORPUSCULAR HGB CONC 31 g/dL (33-37); MEAN PLATELET VOLUME 10.2 fl (7.4-10.4); PLATELET COUNT 190 K/mm3 (130-400); RED BLOOD COUNT 3.36 M/mm3 (4.10-5.30); RED CELL DISTRIBUTION WIDTH 13.8 % (11.5-14.5)
[2019-10-14 12:22] LABS: WHITE BLOOD COUNT 21.5 K/mm3 (4.8-10.8)
[2019-10-14 12:31] LABS: ALBUMIN 3.4 g/dL (3.4-4.8)
[2019-10-14 12:32] LABS: BAND 1 % (0-10); POTASSIUM 3.9 mmol/L (3.5-5.1)
[2019-10-14 12:33] LABS: CALCIUM 9.2 mg/dL (8.3-10.5); LYMPHOCYTE 2 % (20-51); MONOCYTE 6 % (3-10); NEUTROPHILS 90 % (42-75)
[2019-10-14 12:34] LABS: TOTAL PROTEIN 6.3 g/dL (6.2-8.1)
[2019-10-14 12:36] LABS: TOTAL BILIRUBIN 0.5 mg/dL (0.2-1.2)
[2019-10-14] MEDS ORDERED: VALIUM2 M1 PO (15:20)
[2019-10-14] MEDS ORDERED: SODIUM BICARBO325 MG PO (15:22)
[2019-10-14] MEDS ORDERED: CLONIDINE HYDR0.1 MG PO (15:22)
[2019-10-14] MEDS ORDERED: NORVASC2.5 MG PO (15:23)
[2019-10-14] MEDS ORDERED: CELEBREX 1100 MG/CAP PO (15:24)
[2019-10-14] MEDS ORDERED: FISH OIL1 IU PO (15:24)
[2019-10-14] MEDS ORDERED: ZYRTEC ALLERGY10 MG PO (15:25)
[2019-10-14 15:49] VITALS: BP 89/58
== END 2019-10-14 15:05 | disposition other institution (70) ==
LOC: ED 12:02
PROVIDERS: Nurse Practitioner Primary Care
DX: K52.9 Noninfective gastroenteritis and colitis, unspecified (principal); N17.9 Acute kidney failure, unspecified; E86.0 Dehydration; I10 Essential (primary) hypertension; E03.9 Hypothyroidism, unspecified; M00.9 Pyogenic arthritis, unspecified; Z79.82 Long term (current) use of aspirin; Z98.51 Tubal ligation status
CPT/HCPCS: J1170; J2270; J2405; J7030

== ENCOUNTER 2019-10-14 15:14 | Inpatient (IN) | payer MEDICARE, OTHER ==
[~2019-10-14] VITALS: Ht 162.6 cm; Wt 74.0 kg
[2019-10-14] MEDS ORDERED: VALIUM2 M1 PO (15:20)
[2019-10-14] MEDS ORDERED: CLONIDINE HYDR0.1 MG PO (15:22)
[2019-10-14] MEDS ORDERED: SODIUM BICARBO325 MG PO (15:22)
[2019-10-14] MEDS ORDERED: NORVASC2.5 MG PO (15:23)
[2019-10-14] MEDS ORDERED: FISH OIL1 IU PO (15:24)
[2019-10-14] MEDS ORDERED: CELEBREX 1100 MG/CAP PO (15:24)
[2019-10-14] MEDS ORDERED: ZYRTEC ALLERGY10 MG PO (15:25)
[2019-10-14 15:30] VITALS: BP 89/58
[2019-10-14 17:20] VITALS: BP 114/42
[2019-10-14 18:06] VITALS: BP 114/42
[2019-10-14 21:35] VITALS: BP 88/40
[2019-10-14 22:14] VITALS: BP 111/40
[2019-10-15] VITALS (9 sets, daily range): BP systolic 94–114; BP diastolic 41–62
[2019-10-15 05:52] LABS: HEMATOCRIT 25.2 % (37.0-47.0); MEAN CELL VOLUME 92 fl (78-100); MEAN CORPUSCULAR HEMOGLOBIN 29 pg (27-31); MEAN CORPUSCULAR HGB CONC 32 g/dL (33-37); PLATELET COUNT 165 K/mm3 (130-400); RED BLOOD COUNT 2.74 M/mm3 (4.10-5.30); RED CELL DISTRIBUTION WIDTH 13.8 % (11.5-14.5)
[2019-10-15 06:04] LABS: ALBUMIN 2.5 g/dL (3.4-4.8); POTASSIUM 3.9 mmol/L (3.5-5.1)
[2019-10-15 06:05] LABS: CALCIUM 7.9 mg/dL (8.3-10.5)
[2019-10-15 06:06] LABS: TOTAL PROTEIN 4.8 g/dL (6.2-8.1); WHITE BLOOD COUNT 21.8 K/mm3 (4.8-10.8)
[2019-10-15 06:08] LABS: TOTAL BILIRUBIN 0.4 mg/dL (0.2-1.2)
[2019-10-15 06:35] LABS: BAND 19 % (0-10); LYMPHOCYTE 2 % (20-51); METAMYELOCYTE 1 % (0-0); MONOCYTE 4 % (3-10); NEUTROPHILS 74 % (42-75)
== END 2019-10-15 14:52 | disposition short-term general hospital (02) | DRG 372 ==
LOC: MED/SURG 15:14
PROVIDERS: ADMIT Nurse Practitioner Primary Care
DX: A04.72 Enterocolitis due to Clostridium difficile, not specified as recurrent (principal); N17.9 Acute kidney failure, unspecified; N18.3 Chronic kidney disease, stage 3 (moderate); E03.9 Hypothyroidism, unspecified; I12.9 Hypertensive chronic kidney disease with stage 1 through stage 4 chronic kidney disease, or unspecified chronic kidney disease; F32.9 Major depressive disorder, single episode, unspecified; I95.9 Hypotension, unspecified; K21.9 Gastro-esophageal reflux disease without esophagitis; E78.5 Hyperlipidemia, unspecified; E86.0 Dehydration; J30.9 Allergic rhinitis, unspecified; Z79.82 Long term (current) use of aspirin; Z96.652 Presence of left artificial knee joint; Z88.1 Allergy status to other antibiotic agents; Z88.8 Allergy status to other drugs, medicaments and biological substances
CPT/HCPCS: C9113; J0744; J1170; J2405; J3490; J7030; J7040

== ENCOUNTER 2019-10-21 02:24 | Inpatient (IN) | payer MEDICARE, OTHER ==
[~2019-10-21] VITALS: Ht 162.6 cm; Wt 72.7 kg
[~2019-10-21 02:24] MED LIST changes: +CELEBREX 1100 MG/CAP PO; +CLONIDINE HYDR0.1 MG PO; +FISH OIL1 IU PO; +NORVASC2.5 MG PO; +SODIUM BICARBO325 MG PO; +VALIUM2 M1 PO
[2019-10-22 17:03] VITALS: BP 128/80
[2019-10-22] MEDS ORDERED: FIRVANQ50 MG/1 ML PO (17:12)
[2019-10-22] MEDS ORDERED: TYLENOL 325MG325 MG PO (17:19)
[2019-10-22] MEDS ORDERED: NORVASC 10MG10 MG PO (17:22)
[2019-10-22] MEDS ORDERED: LIPITOR 40MG TA40 MG PO (17:23)
[2019-10-23 05:59] VITALS: BP 164/72
[2019-10-23 06:09] LABS: MEAN CELL VOLUME 92 fl (78-100); MEAN CORPUSCULAR HEMOGLOBIN 28 pg (27-31); MEAN CORPUSCULAR HGB CONC 31 g/dL (33-37); MEAN PLATELET VOLUME 10.2 fl (7.4-10.4); PLATELET COUNT 248 K/mm3 (130-400); RED CELL DISTRIBUTION WIDTH 14.9 % (11.5-14.5); WHITE BLOOD COUNT 7.4 K/mm3 (4.8-10.8)
[2019-10-23 06:15] LABS: POTASSIUM 3.4 mmol/L (3.5-5.1)
[2019-10-23 06:16] LABS: CALCIUM 7.5 mg/dL (8.3-10.5)
[2019-10-23 06:20] LABS: HEMATOCRIT 23.1 % (37.0-47.0); HEMOGLOBIN 7.1 g/dL (12.5-16.0)
[2019-10-23 06:23] LABS: MAGNESIUM 1.38 mg/dL (1.60-2.60)
[2019-10-23 06:42] LABS: BAND 6 % (0-10); HYPOCHROMIA 1+; LYMPHOCYTE 15 % (20-51); METAMYELOCYTE 2 % (0-0); MONOCYTE 6 % (3-10); MYELOCYTE 2 % (0-0); NEUTROPHILS 63 % (42-75); OVALOCYTES 1+; POLYCHROMASIA 1+
[2019-10-23 18:20] VITALS: BP 155/73
[2019-10-24 06:08] LABS: HEMATOCRIT 24.2 % (37.0-47.0); MEAN CELL VOLUME 94 fl (78-100); MEAN CORPUSCULAR HEMOGLOBIN 29 pg (27-31); MEAN CORPUSCULAR HGB CONC 31 g/dL (33-37); MEAN PLATELET VOLUME 10.3 fl (7.4-10.4); PLATELET COUNT 261 K/mm3 (130-400); RED BLOOD COUNT 2.58 M/mm3 (4.10-5.30); RED CELL DISTRIBUTION WIDTH 15.1 % (11.5-14.5); WHITE BLOOD COUNT 6.8 K/mm3 (4.8-10.8)
[2019-10-24 06:28] VITALS: BP 155/77
[2019-10-24 06:33] LABS: BAND 1 % (0-10); HEMOGLOBIN 7.4 g/dL (12.5-16.0); LYMPHOCYTE 21 % (20-51); METAMYELOCYTE 1 % (0-0); MONOCYTE 6 % (3-10); NEUTROPHILS 68 % (42-75)
[2019-10-24 17:33] VITALS: BP 117/71
[2019-10-25 06:11] VITALS: BP 136/75
[2019-10-25 07:14] LABS: POTASSIUM 4.6 mmol/L (3.5-5.1)
[2019-10-25 17:11] VITALS: BP 118/51
[2019-10-26 06:15] VITALS: BP 132/69
[2019-10-26 18:46] VITALS: BP 105/63
[2019-10-27 06:02] VITALS: BP 115/57
[2019-10-27 18:03] VITALS: BP 108/54
[2019-10-28] VITALS (25 sets, daily range): BP systolic 93–123; BP diastolic 40–67
[2019-10-28 14:44] LABS: BASO # 0.1 (0.02-0.10); EOS # 0.4 (0.04-0.40); EOS % 7.5 % (1.0-5.0); LYMPH# 1.7 (1.50-4.00); MEAN CELL VOLUME 98 fl (78-100); MEAN CORPUSCULAR HEMOGLOBIN 29 pg (27-31); MEAN PLATELET VOLUME 9.7 fl (7.4-10.4); MONO # 0.5 (0.20-0.80); NEU # 2.6 (1.40-6.50); PLATELET COUNT 370 K/mm3 (130-400); RED CELL DISTRIBUTION WIDTH 15.5 % (11.5-14.5); WHITE BLOOD COUNT 5.3 K/mm3 (4.8-10.8)
[2019-10-28 14:46] LABS: RED BLOOD COUNT 2.24 M/mm3 (4.10-5.30)
[2019-10-28 14:47] LABS: HEMATOCRIT 21.9 % (37.0-47.0); HEMOGLOBIN 6.4 g/dL (12.5-16.0); MEAN CORPUSCULAR HGB CONC 29 g/dL (33-37)
[2019-10-28 14:52] LABS: ALBUMIN 2.8 g/dL (3.4-4.8)
[2019-10-28 14:53] LABS: CALCIUM 8.2 mg/dL (8.3-10.5)
[2019-10-28 14:55] LABS: TOTAL PROTEIN 5.1 g/dL (6.2-8.1)
[2019-10-28 14:56] LABS: TOTAL BILIRUBIN 0.2 mg/dL (0.2-1.2)
[2019-10-28 15:43] LABS: ERYTHROCYTE SEDIMENTATION RATE 75 mm/hr (0-30)
[2019-10-28 15:45] LABS: POTASSIUM 5.9 mmol/L (3.5-5.1)
[2019-10-29] VITALS: BP 108/40
[2019-10-29 00:20] VITALS: BP 118/49
[2019-10-29 00:40] VITALS: BP 102/46
[2019-10-29 01:00] VITALS: BP 105/43
[2019-10-29 05:27] VITALS: BP 135/74
[2019-10-29 06:01] LABS: BASO # 0.1 (0.02-0.10); EOS # 0.4 (0.04-0.40); EOS % 6.9 % (1.0-5.0); HEMATOCRIT 31.6 % (37.0-47.0); LYMPH# 1.6 (1.50-4.00); MEAN CELL VOLUME 93 fl (78-100); MEAN CORPUSCULAR HEMOGLOBIN 29 pg (27-31); MEAN CORPUSCULAR HGB CONC 32 g/dL (33-37); MEAN PLATELET VOLUME 9.7 fl (7.4-10.4); MONO # 0.5 (0.20-0.80); NEU # 2.9 (1.40-6.50); PLATELET COUNT 330 K/mm3 (130-400); RED BLOOD COUNT 3.41 M/mm3 (4.10-5.30); RED CELL DISTRIBUTION WIDTH 16.1 % (11.5-14.5); WHITE BLOOD COUNT 5.5 K/mm3 (4.8-10.8)
[2019-10-29 06:10] LABS: CALCIUM 8.7 mg/dL (8.3-10.5)
[2019-10-29 06:12] LABS: TOTAL PROTEIN 5.5 g/dL (6.2-8.1)
[2019-10-29 06:13] LABS: TOTAL BILIRUBIN 0.4 mg/dL (0.2-1.2)
[2019-10-29 11:31] LABS: ALBUMIN 3.1 g/dL (3.4-4.8)
[2019-10-29 11:33] LABS: CALCIUM 9.1 mg/dL (8.3-10.5)
[2019-10-29 11:34] LABS: TOTAL PROTEIN 5.6 g/dL (6.2-8.1)
[2019-10-29 11:36] LABS: TOTAL BILIRUBIN 0.4 mg/dL (0.2-1.2)
[2019-10-29 11:43] LABS: POTASSIUM 6.3 mmol/L (3.5-5.1)
[2019-10-29 16:05] LABS: ALBUMIN 3.4 g/dL (3.4-4.8)
[2019-10-29 16:06] LABS: POTASSIUM 5.5 mmol/L (3.5-5.1)
[2019-10-29 16:07] LABS: CALCIUM 9.4 mg/dL (8.3-10.5)
[2019-10-29 16:08] LABS: TOTAL PROTEIN 6.2 g/dL (6.2-8.1)
[2019-10-29 16:10] LABS: TOTAL BILIRUBIN 0.4 mg/dL (0.2-1.2)
[2019-10-29 18:15] VITALS: BP 137/78
[2019-10-30 05:41] VITALS: BP 142/73
[2019-10-30 06:27] LABS: BASO # 0.1 (0.02-0.10); EOS # 0.5 (0.04-0.40); EOS % 7.8 % (1.0-5.0); HEMATOCRIT 36.4 % (37.0-47.0); HEMOGLOBIN 11.5 g/dL (12.5-16.0); LYMPH# 1.5 (1.50-4.00); MEAN CELL VOLUME 93 fl (78-100); MEAN CORPUSCULAR HEMOGLOBIN 29 pg (27-31); MEAN CORPUSCULAR HGB CONC 32 g/dL (33-37); MEAN PLATELET VOLUME 9.7 fl (7.4-10.4); MONO # 0.6 (0.20-0.80); NEU # 3.8 (1.40-6.50); PLATELET COUNT 377 K/mm3 (130-400); RED BLOOD COUNT 3.92 M/mm3 (4.10-5.30); RED CELL DISTRIBUTION WIDTH 16.2 % (11.5-14.5); WHITE BLOOD COUNT 6.6 K/mm3 (4.8-10.8)
[2019-10-30 06:31] LABS: POTASSIUM 5.3 mmol/L (3.5-5.1)
[2019-10-30 06:32] LABS: CALCIUM 9.8 mg/dL (8.3-10.5)
[2019-10-30 13:36] LABS: URINE APPEARANCE CLEAR; URINE BILIRUBIN NEGATIVE (NEGATIVE); URINE BLOOD NEGATIVE (NEGATIVE); URINE COLOR YELLOW; URINE GLUCOSE NEGATIVE (NEGATIVE); URINE KETONE NEGATIVE (NEGATIVE); URINE LEUKOCYTE ESTERASE NEGATIVE (NEGATIVE); URINE MUCUS PRESENT (NOT PRESENT); URINE NITRATE NEGATIVE (NEGATIVE); URINE PROTEIN(semi-quant) TRACE mg/dL (NEGATIVE); URINE UROBILINOGEN NORMAL (NORMAL)
[2019-10-30 15:51] LABS: BASO # 0.1 (0.02-0.10); EOS # 0.5 (0.04-0.40); HEMATOCRIT 39.3 % (37.0-47.0); HEMOGLOBIN 12.6 g/dL (12.5-16.0); LYMPH# 1.8 (1.50-4.00); MEAN CELL VOLUME 92 fl (78-100); MEAN CORPUSCULAR HEMOGLOBIN 30 pg (27-31); MEAN CORPUSCULAR HGB CONC 32 g/dL (33-37); MEAN PLATELET VOLUME 9.4 fl (7.4-10.4); MONO # 0.8 (0.20-0.80); NEU # 3.8 (1.40-6.50); PLATELET COUNT 391 K/mm3 (130-400); RED BLOOD COUNT 4.26 M/mm3 (4.10-5.30); RED CELL DISTRIBUTION WIDTH 16.2 % (11.5-14.5); WHITE BLOOD COUNT 7.1 K/mm3 (4.8-10.8)
[2019-10-30 16:02] LABS: ALBUMIN 3.8 g/dL (3.4-4.8); POTASSIUM 5.5 mmol/L (3.5-5.1)
[2019-10-30 16:03] LABS: CALCIUM 9.8 mg/dL (8.3-10.5)
[2019-10-30 16:04] LABS: TOTAL PROTEIN 7.3 g/dL (6.2-8.1)
[2019-10-30 16:06] LABS: TOTAL BILIRUBIN 0.4 mg/dL (0.2-1.2)
[2019-10-30 17:47] VITALS: BP 144/76
[2019-10-31 05:48] VITALS: BP 133/75
[2019-10-31 07:33] LABS: BASO # 0.1 (0.02-0.10); EOS # 0.4 (0.04-0.40); EOS % 6.3 % (1.0-5.0); HEMATOCRIT 38.3 % (37.0-47.0); HEMOGLOBIN 11.9 g/dL (12.5-16.0); LYMPH# 1.7 (1.50-4.00); MEAN CELL VOLUME 94 fl (78-100); MEAN CORPUSCULAR HEMOGLOBIN 29 pg (27-31); MEAN CORPUSCULAR HGB CONC 31 g/dL (33-37); MEAN PLATELET VOLUME 9.2 fl (7.4-10.4); MONO # 0.7 (0.20-0.80); NEU # 3.8 (1.40-6.50); PLATELET COUNT 378 K/mm3 (130-400); RED BLOOD COUNT 4.06 M/mm3 (4.10-5.30); RED CELL DISTRIBUTION WIDTH 15.7 % (11.5-14.5); WHITE BLOOD COUNT 6.7 K/mm3 (4.8-10.8)
[2019-10-31 07:52] LABS: ALBUMIN 3.6 g/dL (3.4-4.8)
[2019-10-31 07:53] LABS: CALCIUM 9.7 mg/dL (8.3-10.5)
[2019-10-31 07:56] LABS: TOTAL BILIRUBIN 0.4 mg/dL (0.2-1.2)
[2019-10-31 08:46] LABS: POTASSIUM 6.4 mmol/L (3.5-5.1)
[2019-10-31 12:26] VITALS: BP 115/72
[2019-10-31 12:42] LABS: MAGNESIUM 1.19 mg/dL (1.60-2.60)
[2019-10-31 12:51] VITALS: BP 115/72
== END 2019-10-31 13:16 | disposition short-term general hospital (02) | DRG 948 ==
LOC: MED/SURG 02:24
PROVIDERS: Nurse Practitioner Family; Physician Assistant; ADMIT Family Medicine
DX: R53.81 Other malaise (principal); N17.9 Acute kidney failure, unspecified; K56.7 Ileus, unspecified; N18.3 Chronic kidney disease, stage 3 (moderate); E89.0 Postprocedural hypothyroidism; I12.9 Hypertensive chronic kidney disease with stage 1 through stage 4 chronic kidney disease, or unspecified chronic kidney disease; K21.9 Gastro-esophageal reflux disease without esophagitis; E87.5 Hyperkalemia; E83.42 Hypomagnesemia; D63.1 Anemia in chronic kidney disease; M19.90 Unspecified osteoarthritis, unspecified site; F32.9 Major depressive disorder, single episode, unspecified; F41.9 Anxiety disorder, unspecified; J30.9 Allergic rhinitis, unspecified; Z79.82 Long term (current) use of aspirin; Z79.2 Long term (current) use of antibiotics; Z93.2 Ileostomy status; Z96.652 Presence of left artificial knee joint; Z86.14 Personal history of Methicillin resistant Staphylococcus aureus infection; Z88.2 Allergy status to sulfonamides; Z88.8 Allergy status to other drugs, medicaments and biological substances; Z88.1 Allergy status to other antibiotic agents
CPT/HCPCS: J0610; J1815; J1940; J7030; J7120; P9016

== ENCOUNTER → 2019-11-05 | Outpatient (CLI) | payer MEDICARE, OTHER ==
[2019-10-31 12:51] VITALS: BP 115/72
[~2019-11-05] MED LIST changes: +FIRVANQ50 MG/1 ML PO; +LIPITOR 40MG TA40 MG PO; +NORVASC 10MG10 MG PO; +TYLENOL 325MG325 MG PO
[2019-11-05 10:14] LABS: HEMATOCRIT 35.2 % (37.0-47.0); MEAN CELL VOLUME 94 fl (78-100); MEAN CORPUSCULAR HEMOGLOBIN 29 pg (27-31); MEAN CORPUSCULAR HGB CONC 31 g/dL (33-37); MEAN PLATELET VOLUME 9.7 fl (7.4-10.4); PLATELET COUNT 234 K/mm3 (130-400); RED BLOOD COUNT 3.74 M/mm3 (4.10-5.30); RED CELL DISTRIBUTION WIDTH 14.3 % (11.5-14.5); WHITE BLOOD COUNT 4.9 K/mm3 (4.8-10.8)
[2019-11-05 10:16] LABS: ALBUMIN 3.7 g/dL (3.4-4.8); POTASSIUM 4.3 mmol/L (3.5-5.1)
[2019-11-05 10:17] LABS: CALCIUM 9.2 mg/dL (8.3-10.5)
[2019-11-05 10:18] LABS: TOTAL PROTEIN 6.8 g/dL (6.2-8.1)
[2019-11-05 10:20] LABS: TOTAL BILIRUBIN 0.2 mg/dL (0.2-1.2)
[2019-11-05 11:11] LABS: LYMPHOCYTE 33 % (20-51); MONOCYTE 5 % (3-10); NEUTROPHILS 45 % (42-75)
[2019-11-05 11:23] LABS: ERYTHROCYTE SEDIMENTATION RATE 54 mm/hr (0-30)
== END ==
LOC: LAB 09:49
PROVIDERS: Family Medicine
DX: N18.3 Chronic kidney disease, stage 3 (moderate) (principal); D63.1 Anemia in chronic kidney disease; Z22.322 Carrier or suspected carrier of Methicillin resistant Staphylococcus aureus

== ENCOUNTER 2019-12-13 09:59 | Outpatient (RCR) | payer MEDICARE, OTHER ==
[2019-11-08 10:35] VITALS: BP 106/55
[2019-11-15 10:27] VITALS: BP 123/68
[2019-11-22 10:35] VITALS: BP 111/63
[2019-12-06 10:33] VITALS: BP 98/66
[~2019-12-13] VITALS: Ht 162.6 cm; Wt 72.7 kg
[2019-12-13 10:05] VITALS: BP 138/58
== END 2019-12-13 10:35 | disposition still patient (30) ==
LOC: AMSURD
DX: T81.49XA Infection following a procedure, other surgical site, initial encounter (principal); M00.9 Pyogenic arthritis, unspecified; Z22.322 Carrier or suspected carrier of Methicillin resistant Staphylococcus aureus
CPT/HCPCS: J1644

== ENCOUNTER → 2020-01-20 | Outpatient (CLI) | payer MEDICARE, OTHER | LOC: LAB 09:59 | DX: T84.50XA Infection and inflammatory reaction due to unspecified internal joint prosthesis, initial encounter (principal) ==

== ENCOUNTER 2020-04-10 08:00 | Outpatient (RCR) | payer MEDICARE, OTHER | END 2020-04-10 08:30 | disposition still patient (30) | LOC: PT 08:00 | DX: M25.562 Pain in left knee (principal); Z96.652 Presence of left artificial knee joint ==

== ENCOUNTER → 2020-08-31 | Outpatient (CLI) | payer MEDICARE, OTHER ==
[2020-08-31 15:35] LABS: ALBUMIN 4.2 g/dL (3.4-4.8); POTASSIUM 4.2 mmol/L (3.5-5.1)
[2020-08-31 15:38] LABS: TOTAL PROTEIN 7.2 g/dL (6.2-8.1)
[2020-08-31 15:39] LABS: TOTAL BILIRUBIN 0.2 mg/dL (0.2-1.2)
[2020-08-31 15:40] LABS: EOS # 0.2 (0.04-0.40); HEMATOCRIT 34.4 % (37.0-47.0); HEMOGLOBIN 10.7 g/dL (12.5-16.0); LYMPH# 1.9 (1.50-4.00); MEAN CELL VOLUME 94 fl (78-100); MEAN CORPUSCULAR HEMOGLOBIN 29 pg (27-31); MEAN CORPUSCULAR HGB CONC 31 g/dL (33-37); MEAN PLATELET VOLUME 9.7 fl (7.4-10.4); MONO # 0.5 (0.20-0.80); NEU # 3.8 (1.40-6.50); PLATELET COUNT 238 K/mm3 (130-400); RED BLOOD COUNT 3.68 M/mm3 (4.10-5.30); RED CELL DISTRIBUTION WIDTH 14.2 % (11.5-14.5); WHITE BLOOD COUNT 6.4 K/mm3 (4.8-10.8)
== END ==
LOC: LAB 15:04
PROVIDERS: Family Medicine
DX: Z00.00 Encounter for general adult medical examination without abnormal findings (principal); E78.5 Hyperlipidemia, unspecified; R19.8 Other specified symptoms and signs involving the digestive system and abdomen; E03.1 Congenital hypothyroidism without goiter; G64 Other disorders of peripheral nervous system

== ENCOUNTER → 2020-09-01 | Outpatient (CLI) | payer MEDICARE, OTHER | LOC: LAB 08:19 | DX: R19.8 Other specified symptoms and signs involving the digestive system and abdomen (principal) ==

== ENCOUNTER → 2020-09-08 | Outpatient (CLI) | payer MEDICARE, OTHER | LOC: MAMMO 12:44 | DX: Z12.31 Encounter for screening mammogram for malignant neoplasm of breast (principal) ==

== ENCOUNTER → 2020-09-08 | Outpatient (CLI) | payer MEDICARE, OTHER | LOC: RAD 12:45 → MAMMO 13:45 | DX: Z13.820 Encounter for screening for osteoporosis (principal); Z12.31 Encounter for screening mammogram for malignant neoplasm of breast; M85.80 Other specified disorders of bone density and structure, unspecified site ==

== ENCOUNTER → 2020-12-05 | Outpatient (CLI) | payer MEDICARE, OTHER | LOC: LAB 11:35 | DX: E53.1 Pyridoxine deficiency (principal) ==

== ENCOUNTER → 2021-02-24 | Outpatient (CLI) | payer MEDICARE, OTHER ==
[2021-02-24 10:41] LABS: BASO # 0.03 (0.02-0.10); EOS # 0.16 (0.04-0.40); EOS % 2.9 % (1.0-5.0); HEMATOCRIT 34.5 % (37.0-47.0); HEMOGLOBIN 11.1 g/dL (12.5-16.0); LYMPH# 1.29 (1.50-4.00); MEAN CELL VOLUME 95 fl (78-100); MEAN CORPUSCULAR HEMOGLOBIN 30 pg (27-31); MEAN CORPUSCULAR HGB CONC 32 g/dL (33-37); MEAN PLATELET VOLUME 9.6 fl (7.4-10.4); MONO # 0.34 (0.20-0.80); NEU # 3.68 (1.40-6.50); PLATELET COUNT 190 K/mm3 (130-400); RED BLOOD COUNT 3.65 M/mm3 (4.10-5.30); RED CELL DISTRIBUTION WIDTH 13.4 % (11.5-14.5); WHITE BLOOD COUNT 5.5 K/mm3 (4.8-10.8)
[2021-02-24 10:46] LABS: ALBUMIN 4.1 g/dL (3.4-4.8); POTASSIUM 4.6 mmol/L (3.5-5.1)
[2021-02-24 10:49] LABS: TOTAL PROTEIN 7.5 g/dL (6.2-8.1)
[2021-02-24 10:50] LABS: TOTAL BILIRUBIN 0.4 mg/dL (0.2-1.2)
== END ==
LOC: LAB 10:11
PROVIDERS: Family Medicine
DX: D64.9 Anemia, unspecified (principal); E03.1 Congenital hypothyroidism without goiter; E55.9 Vitamin D deficiency, unspecified; N18.30 Chronic kidney disease, stage 3 unspecified

== ENCOUNTER 2021-08-04 11:04 | Emergency (ER) | payer MEDICARE, OTHER ==
[2021-08-04 11:47] LABS: BASO # 0.02 K/mm3 (0.02-0.10); EOS # 0.06 K/mm3 (0.04-0.40); EOS % 1.5 % (1.0-5.0); HEMATOCRIT 34.2 % (37.0-47.0); HEMOGLOBIN 10.6 g/dL (12.5-16.0); LYMPH# 1.23 K/mm3 (1.50-4.00); MEAN CELL VOLUME 98 fl (78-100); MEAN CORPUSCULAR HEMOGLOBIN 30 pg (27-31); MEAN CORPUSCULAR HGB CONC 31 g/dL (33-37); MEAN PLATELET VOLUME 9.8 fl (7.4-10.4); MONO # 0.63 K/mm3 (0.20-0.80); PLATELET COUNT 184 K/mm3 (130-400); WHITE BLOOD COUNT 4.1 K/mm3 (4.8-10.8)
[2021-08-04 11:51] LABS: ALBUMIN 4.1 g/dL (3.4-4.8); POTASSIUM 4.4 mmol/L (3.5-5.1)
[2021-08-04 11:52] LABS: SODIUM 138 mmol/L (136-145)
[2021-08-04 11:53] LABS: CALCIUM 9.3 mg/dL (8.3-10.5)
[2021-08-04 11:54] LABS: GLUCOSE 88 mg/dL (65-105); TOTAL PROTEIN 6.8 g/dL (6.2-8.1)
[2021-08-04 11:55] LABS: CARBON DIOXIDE 19 mmol/L (23-31)
[2021-08-04 11:56] LABS: TOTAL BILIRUBIN 0.3 mg/dL (0.2-1.2)
[2021-08-04 11:59] LABS: AST-SGOT 18 U/L (5-34)
[2021-08-04 12:00] LABS: ALT/SGPT 15 U/L (0-55)
[2021-08-04 12:07] LABS: TROPONIN-I < 0.03 ng/mL (<0.030)
[2021-08-04 13:02] VITALS: BP 164/70
== END 2021-08-04 13:15 | disposition home or self-care (01) ==
LOC: ED 11:04
PROVIDERS: Physician Assistant
DX: U07.1 COVID-19 (principal); I12.9 Hypertensive chronic kidney disease with stage 1 through stage 4 chronic kidney disease, or unspecified chronic kidney disease; N18.9 Chronic kidney disease, unspecified; E78.5 Hyperlipidemia, unspecified; Z93.2 Ileostomy status; Z87.891 Personal history of nicotine dependence; Z79.899 Other long term (current) drug therapy

== ENCOUNTER → 2021-08-11 | Outpatient (CLI) | payer MEDICARE, OTHER ==
[~2021-08-11] VITALS: Ht 162.6 cm; Wt 72.7 kg
[2021-08-11 15:19] VITALS: BP 117/86
[2021-08-11 16:30] VITALS: BP 141/56
== END ==
LOC: AMSURD 13:28
DX: U07.1 COVID-19 (principal); N18.9 Chronic kidney disease, unspecified; I25.10 Atherosclerotic heart disease of native coronary artery without angina pectoris
CPT/HCPCS: M0245; Q0245

== ENCOUNTER → 2022-02-23 | Outpatient (CLI) | payer MEDICARE, OTHER | LOC: LAB 11:04 | DX: Z00.00 Encounter for general adult medical examination without abnormal findings (principal); E03.9 Hypothyroidism, unspecified; E78.5 Hyperlipidemia, unspecified; I13.10 Hypertensive heart and chronic kidney disease without heart failure, with stage 1 through stage 4 chronic kidney disease, or unspecified chronic kidney disease; N18.30 Chronic kidney disease, stage 3 unspecified; D63.1 Anemia in chronic kidney disease; E03.1 Congenital hypothyroidism without goiter; K21.9 Gastro-esophageal reflux disease without esophagitis; E66.3 Overweight; M19.90 Unspecified osteoarthritis, unspecified site; S41.111A Laceration without foreign body of right upper arm, initial encounter; E55.9 Vitamin D deficiency, unspecified; Z90.89 Acquired absence of other organs ==

== ENCOUNTER → 2022-05-18 | Day surgery (SDC) | payer MEDICARE, OTHER | LOC: MSO 08:50 | DX: H25.812 Combined forms of age-related cataract, left eye (principal) | CPT/HCPCS: 00142; J0171; J2250; V2632 ==

== ENCOUNTER → 2022-06-15 | Day surgery (SDC) | payer MEDICARE, OTHER | END | disposition home or self-care (01) | LOC: MSO 10:01 | DX: H25.813 Combined forms of age-related cataract, bilateral (principal); Z86.16 Personal history of COVID-19 | CPT/HCPCS: 00142; J0171; J2250; J2405; V2632 ==

== ENCOUNTER 2024-01-09 14:40 | Emergency (ER) | payer MEDICARE, OTHER ==
[~2024-01-09 14:40] MED LIST changes: +Morphine 10 MG/ML VIAL IM ONE; +Promethazine 50 MG/ML 1 ML VIAL IM ONE; +fentaNYL 100 MCG/2 ML VIAL IM ONE
[2024-02-12 23:38] LABS: ALBUMIN 4.5 g/dL (3.4-4.8); CALCIUM 10.1 mg/dL (8.3-10.5); TOTAL BILIRUBIN 0.4 mg/dL (0.2-1.2); TOTAL PROTEIN 7.5 g/dL (6.2-8.1)
[2024-02-12 23:40] LABS: BASO # 0.02 K/mm3 (0.02-0.10); EOS # 0.39 K/mm3 (0.04-0.40); EOS % 3.3 % (1.0-5.0); HEMATOCRIT 38.6 % (37.0-47.0); HEMOGLOBIN 12.2 g/dL (12.5-16.0); LYMPH# 1.04 K/mm3 (1.50-4.00); MEAN CELL VOLUME 94 fl (78-100); MEAN CORPUSCULAR HEMOGLOBIN 30 pg (27-31); MEAN CORPUSCULAR HGB CONC 32 g/dL (33-37); MEAN PLATELET VOLUME 9.6 fl (7.4-10.4); MONO # 0.79 K/mm3 (0.20-0.80); NEU # 9.59 K/mm3 (1.40-6.50); PLATELET COUNT 205 K/mm3 (130-400); RED CELL DISTRIBUTION WIDTH 13.3 % (11.5-14.5); WHITE BLOOD COUNT 11.9 K/mm3 (4.8-10.8)
== END 2024-01-09 20:08 | disposition short-term general hospital (02) ==
LOC: ED 14:40
PROVIDERS: Nurse Practitioner Family
DX: K56.609 Unspecified intestinal obstruction, unspecified as to partial versus complete obstruction (principal)
CPT/HCPCS: J2270; J2550; J3010

== ENCOUNTER → 2024-05-13 | Outpatient (CLI) | payer MEDICARE, OTHER ==
[~2024-05-13] MED LIST changes: -Morphine 10 MG/ML VIAL IM ONE; -Promethazine 50 MG/ML 1 ML VIAL IM ONE; -fentaNYL 100 MCG/2 ML VIAL IM ONE
[2024-05-13 10:24] LABS: BASO # 0.01 K/mm3 (0.02-0.10); EOS # 0.42 K/mm3 (0.04-0.40); EOS % 6.5 % (1.0-5.0); HEMATOCRIT 32.3 % (37.0-47.0); LYMPH# 2.09 K/mm3 (1.50-4.00); MEAN CELL VOLUME 99 fl (78-100); MEAN CORPUSCULAR HEMOGLOBIN 31 pg (27-31); MEAN CORPUSCULAR HGB CONC 31 g/dL (33-37); MEAN PLATELET VOLUME 9.1 fl (7.4-10.4); MONO # 0.49 K/mm3 (0.20-0.80); NEU # 3.39 K/mm3 (1.40-6.50); PLATELET COUNT 183 K/mm3 (130-400); RED BLOOD COUNT 3.28 M/mm3 (4.10-5.30); RED CELL DISTRIBUTION WIDTH 13.6 % (11.5-14.5); WHITE BLOOD COUNT 6.4 K/mm3 (4.8-10.8)
[2024-05-13 10:39] LABS: ALBUMIN 4.1 g/dL (3.4-4.8)
[2024-05-13 10:40] LABS: CALCIUM 9.5 mg/dL (8.3-10.5)
[2024-05-13 10:41] LABS: TOTAL PROTEIN 7.1 g/dL (6.2-8.1)
[2024-05-13 10:43] LABS: TOTAL BILIRUBIN 0.4 mg/dL (0.2-1.2)
== END ==
LOC: LAB 10:13
PROVIDERS: Family Medicine
DX: E78.5 Hyperlipidemia, unspecified (principal); E55.9 Vitamin D deficiency, unspecified; N18.30 Chronic kidney disease, stage 3 unspecified; D63.1 Anemia in chronic kidney disease; E03.1 Congenital hypothyroidism without goiter

== ENCOUNTER → 2024-06-21 | Outpatient (CLI) | payer MEDICARE, OTHER | LOC: MAMMO 08:28 | DX: Z12.31 Encounter for screening mammogram for malignant neoplasm of breast (principal) ==